=== PATIENT | female | born 1960 | race Caucasian/White ===

== ENCOUNTER → 2017-09-15 10:21 | Outpatient (CLI) | payer BC, SELFPAY ==
[2017-09-15 11:25] LABS: HCT 36.7 % (36.0-46.0); HGB 11.4 g/dL (12.0-15.5); Mean Corp. HGB Concentration 31.1 g/dL (32.0-36.0); Mean Corpuscular Hemoglobin 27.4 pg (27.0-33.0); Mean Corpuscular Volume 88.2 fL (80-95); Mean Platelet Volume 10.3 fL (8.0-11.0); Platelet Count 282 x1000/uL (130-400); RBC 4.16 m/cumm (4.00-5.20); RBC Distribution Width 14.4 % (11.7-14.6)
[2017-09-15 11:48] LABS: ALT 55 U/L (12-78); AST 38 U/L (15-37); Albumin 3.7 g/dL (3.4-5.0); Alkaline Phosphatase 91 U/L (46-116); Anion Gap 9.6 mmol/L (3-11); BUN 14 mg/dL (7-18); Bilirubin, Total 0.2 mg/dL (0.2-1.0); CO2 27.4 mmol/L (21.0-32.0); CREATININE 0.89 mg/dL (0.55-1.02); Calcium 8.9 mg/dL (8.5-10.1); Chloride 104 mmol/L (98-107); Cholesterol 151 mg/dL (50-200); Glucose 92 mg/dL (70-100); HDL Cholesterol 42 mg/dL (40-60); LDL CHOLESTEROL 79 mg/dL (<100); Potassium 4.3 mmol/L (3.5-5.1); Sodium 141 mmol/L (136-145); TSH 1.66 uIU/mL (0.358-3.74); Total Protein 6.9 g/dL (6.4-8.2); Triglyceride 218 mg/dL (30-150)
== END ==
PROVIDERS: PCP Family Medicine; Visit Provider Family Medicine
DX: R53.82 Chronic fatigue, unspecified (principal)
CPT/HCPCS: 36415; 80053; 80061; 83721; 85027; 84443

== ENCOUNTER 2019-01-18 01:36 | Outpatient (CLI) | payer BC, SELFPAY ==
[2019-01-18 10:22] LABS: Hemoglobin A1C 8.3 % (4.5-6.2)
--- NOTE | 2019-01-18 10:30 | DI.MAMMO_ITS ---
EXAM: MG MAMMO SCREENING CLINICAL HISTORY: screening Z12.39 TECHNIQUE: Mammograms were interpreted according to the usual protocol including computer analysis w [employer] CAD system, tomosynthesis and C-view imaging. COMPARISON: [id number] FINDINGS: The breasts are composed of scattered areas of fibroglandular density, breast density category B. Th ere are no suspicious masses or suspicious microcalcifications. There has been no significant change when compared with prior images. IMPRESSION: Category 1, negative mammogram. Yearly screening mammography is recommended. BI-RADS Cat 1 - Negative Breast Density - Category B - Scattered areas of fibroglandular density
[2019-01-18 10:59] LABS: Anion Gap 11.4 mmol/L (3-11); BUN 13 mg/dL (7-18); CO2 26.6 mmol/L (21.0-32.0); CREATININE 0.81 mg/dL (0.55-1.02); Calcium 9.3 mg/dL (8.5-10.1); Calculated LDL 58 mg/dL; Chloride 104 mmol/L (98-107); Cholesterol 150 mg/dL (<200); Glucose 83 mg/dL (74-106); HDL Cholesterol 37 mg/dL (40-60); Potassium 4.3 mmol/L (3.5-5.1); Sodium 142 mmol/L (136-145); Triglyceride 275 mg/dL (<150)
== END 2019-01-18 01:56 ==
PROVIDERS: PCP Family Medicine; Visit Provider Family Medicine
DX: Z12.31 Encounter for screening mammogram for malignant neoplasm of breast (principal); I10 Essential (primary) hypertension; E11.9 Type 2 diabetes mellitus without complications
CPT/HCPCS: 36415; 77063; 77067; 80048; 80061; 83036

== ENCOUNTER 2020-01-18 08:48 | Outpatient (CLI) | payer OTHER, SELFPAY ==
[2020-01-18 12:22] LABS: HCT 37.6 % (36.0-46.0); HGB 11.5 g/dL (11.2-15.7); MCHC 30.6 % (32.0-36.0); MCV 88.3 fL (80-95); MPV 10.3 fL (8.0-11.0); Platelet Count 295 10^3/uL (130-400); RBC 4.26 10^6/uL (3.93-5.22); RDW 13.4 % (11.7-14.6); RDW-SD 43.3 fL; WBC 9.89 10^3/uL (4.4-10.8)
[2020-01-18 12:49] LABS: Anion Gap 7.6 mmol/L (3-11); BUN 15 mg/dL (7-18); CO2 26.4 mmol/L (21.0-32.0); Calcium 9.1 mg/dL (8.5-10.1); Chloride 102 mmol/L (98-107); Glucose 127 mg/dL (74-106); Potassium 4.1 mmol/L (3.5-5.1); Sodium 136 mmol/L (136-145)
[2020-01-18 12:58] LABS: Calculated LDL 72 mg/dL (<100); Cholesterol 160 mg/dL (<200); HDL Cholesterol 39 mg/dL (40-60); Triglyceride 245 mg/dL (<150)
== END 2020-01-18 09:08 ==
PROVIDERS: Family Medicine; PCP Nurse Practitioner; Referring Provider Nurse Practitioner; Visit Provider Nurse Practitioner
DX: E78.5 Hyperlipidemia, unspecified (principal); I10 Essential (primary) hypertension
CPT/HCPCS: 36415; 80048; 80061; 85027

== ENCOUNTER 2020-02-14 01:01 | Outpatient (CLI) | payer OTHER, SELFPAY ==
--- NOTE | 2020-02-14 15:48 | DI.MAMMO_ITS ---
EXAM: MG MAMMO SCREENING CLINICAL HISTORY: screening,Z12.39. TECHNIQUE: Bilateral full field digital CC and MLO mammographic images were obtained with 3D tomosyn thesis and utilizing computer aided detection (CAD). COMPARISON: Prior mammograms dating back to 2010, the most recent being January 2019.. FINDINGS: There are no spiculated masses nor malignant appearing microcalcification groups. There is no signif icant architectural distortion nor skin thickening-retraction. IMPRESSION: No radiographic evidence of malignancy. BI-RADS Category 1 - Negative Breast Density - Category B - Scattered areas of fibroglandular density Breast density Category C or D implies that the patient has dense breast tissue. Dense breast tissue can make it harder to find cancer on a mammogram. Dense breast tissue is also associated with an incr eased risk of breast cancer. This information about the result of the mammogram report was provided to the patient to raise their awareness. Use this report when you speak with the patient about their risks for breast cancer, which includes their family history. At that time, you may recommend additional screening tests (Ultrasoun d or MRI) as these tests may add significant information. A negative radiographic report should not delay biopsy if a dominant or clinically suspicious mass is present. Up to ten percent of cancers are not identified on mammography. A negative report may reinforce clinical impression. Adenosis and dense breasts may obscure an underlying neoplasm. False positive reports average 6 to 10%. Patient will receive a letter notifying them of these results.
== END 2020-02-14 01:21 ==
PROVIDERS: PCP Nurse Practitioner; Visit Provider Nurse Practitioner
DX: Z12.31 Encounter for screening mammogram for malignant neoplasm of breast (principal)
CPT/HCPCS: 77063; 77067

== ENCOUNTER 2020-12-08 10:54 | Outpatient (REF) | payer OTHER, SELFPAY ==
[2020-12-10 14:31] LABS: COVID-19 RT-PCR UVMMC Result Negative (Negative)
== END 2020-12-08 10:55 | disposition home or self-care (01) ==
LOC: LBN 10:54
PROVIDERS: PCP Nurse Practitioner; Visit Provider Family Medicine
DX: Z20.822 Contact with and (suspected) exposure to COVID-19 (principal)
CPT/HCPCS: U0003

== ENCOUNTER 2021-02-16 00:35 | Outpatient (CLI) | payer OTHER, SELFPAY ==
--- NOTE | 2021-02-16 07:30 | DI.MAMMO_ITS ---
Exam(s) MAMMO SCREENING EXAM: MAMMO SCREENING CLINICAL HISTORY: screening,z12.39 TECHNIQUE: Mammograms were interpreted according to the usual protocol including computer analysis w [employer] CAD system, tomosynthesis and C-view imaging. COMPARISON: 2012 through 2019 FINDINGS: The breasts are composed of scattered fibroglandular densities, Breast Density category B. No suspicious masses or suspicious microcalcifications are seen. No skin thickening or abnormal axillary lymph nodes are seen. There has been no significant change from prior exams. IMPRESSION: BI-RADS Category 1, Negative mammogram Yearly screening mammography is recommended. Breast Density - Category B, scattered fibroglandular densities. A negative radiographic report should not delay biopsy if a dominant or clinically suspicious mass is present. Up to ten percent of cancers are not identified on mammography. A negative report may reinforce clinical impression. Adenosis and dense breasts may obscure an underlying neoplasm. False positive reports average 6 to 10%. Patient will receive a letter notifying them of these results.
== END 2021-02-16 00:55 ==
PROVIDERS: PCP Nurse Practitioner; Visit Provider Nurse Practitioner
DX: Z12.31 Encounter for screening mammogram for malignant neoplasm of breast (principal)
CPT/HCPCS: 77063; 77067

== ENCOUNTER 2021-02-16 02:48 | Outpatient (CLI) | payer OTHER, SELFPAY ==
[2021-02-16 12:17] LABS: HCT 36.1 % (36.0-46.0); HGB 11.1 g/dL (11.2-15.7); MCH 27.1 pg (27.0-33.0); MCHC 30.7 % (32.0-36.0); MPV 8.9 fL (8.0-11.0); Platelet Count 252 10^3/uL (130-400); RDW 14.2 % (11.7-14.6); RDW-SD 45.5 fL; WBC 11.44 10^3/uL (4.4-10.8)
[2021-02-16 12:35] LABS: Hemoglobin A1C 7.4 % (<5.7)
[2021-02-16 13:01] LABS: CREATININE 0.8 mg/dL (0.55-1.02); Calculated LDL 126 mg/dL (<100); Cholesterol 226 mg/dL (<200); HDL Cholesterol 43 mg/dL (40-60); Potassium 4.1 mmol/L (3.5-5.1); Triglyceride 288 mg/dL (<150)
== END 2021-02-16 02:49 | disposition home or self-care (01) ==
PROVIDERS: PCP Nurse Practitioner; Visit Provider Nurse Practitioner
DX: I10 Essential (primary) hypertension (principal); E78.5 Hyperlipidemia, unspecified; E11.9 Type 2 diabetes mellitus without complications; D50.8 Other iron deficiency anemias
CPT/HCPCS: 36415; 80061; 85027; 82565; 83036; 84132

== ENCOUNTER 2022-02-12 00:13 | Outpatient (CLI) | payer OTHER, SELFPAY ==
--- NOTE | 2022-02-12 07:45 | DI.MAMMO_ITS ---
Exam(s) US CHEST MG MAMMO DIAGNOSTIC BI EXAM: MG MAMMO DIAGNOSTIC BI CLINICAL HISTORY: lump on breast,LT,N63.25,N63.0. COMPARISON: MG SCREENING JAYLENE MAMMO W/CAD DIGI from 11/30/2012 MG Screening Bilat Mammo from 12/23/2014 MG Screening Bilat Mammo from 01/19/2017 MG MG MAMMO SCREENING from 01/18/2019 MG MG MAMMO SCREENING from 02/14/2020 MG MG MAMMO SCREENING from 02/16/2021 US US CHEST from 02/12/2022 TECHNIQUE: Craniocaudal and mediolateral oblique Full Field Digital Mammography views of the both br easts with Computer Aided Diagnosis followed by Tomosynthesis and left chest wall ultrasound. FINDINGS: Mammography/Tomosynthesis: Masses/Architectural Distortion: None seen. Microcalcifications: No suspicious pleomorphic-type are seen. Skin Thickening/Nipple Retraction: None. Left chest wall US: The palpable abnormality was scanned in the superior chest above the level of the breast tissue. The breast tissue was not scanned. Echotexture: Normal appearance of the glandular tissue. Shadowing: No suspicious foci. Cyst: None. Solid lesions: A homogeneous fatty echogenicity lesion is noted corresponding to the palpable abnorma lity which measures 1.6 x 0.6 x 1.5 cm. This is consistent with a lipoma. There is no internal vasc ularity. Ductal dilation: None. IMPRESSION: 1. No evidence of malignancy is noted. The palpable abnormality is consistent with a lipoma in the le ft upper chest. 2. Unless there is more urgent need, follow-up screening mammography is recommended, as per [place] guidelines. 3. Findings were discussed with the patient following the exam. BI-RADS Category 2 - Benign Findings Breast Density - Category B - Scattered areas of fibroglandular density A negative radiographic report should not delay biopsy if a dominant or clinically suspicious mass is present. Up to ten percent of cancers are not identified on mammography. A negative report may reinforce clinical impression. Adenosis and dense breasts may obscure an underlying neoplasm. False positive reports average 6 to 10%. Patient will receive a letter notifying them of these results.
== END 2022-02-12 00:33 ==
LOC: DI 00:16
PROVIDERS: PCP Nurse Practitioner Family; Visit Provider Nurse Practitioner Family
DX: N63.25 Unspecified lump in the left breast, overlapping quadrants (principal); D17.1 Benign lipomatous neoplasm of skin and subcutaneous tissue of trunk; N64.59 Other signs and symptoms in breast
CPT/HCPCS: 77062; 77066; 76604; G0279

== ENCOUNTER 2022-02-12 02:46 | Outpatient (CLI) | payer OTHER, SELFPAY ==
[2022-02-12 14:23] LABS: Abs Immature Grans 0.04 10^3/uL (0.0-0.06); Absolute Basophil Count 0.07 10^3/uL (0.0-0.2); Absolute Lymphocyte Count 3.99 10^3/uL (1.2-3.4); Absolute Monocyte Count 0.74 10^3/uL (0.1-0.8); Basophils % 0.6; Eosinophils % 5.8; HCT 34.9 % (36.0-46.0); HGB 10.9 g/dL (11.2-15.7); Immature Grans % 0.3; Lymphocytes % 33.3; MCH 26.9 pg (27.0-33.0); MCHC 31.2 % (32.0-36.0); MCV 86 fL (80-95); MPV 9.2 fL (8.0-11.0); Monocytes % 6.2; Neutrophils % 53.8; Platelet Count 295 10^3/uL (130-400); RBC 4.05 10^6/uL (3.93-5.22); RDW 14.1 % (11.7-14.6); RDW-SD 44.3 fL; WBC 11.97 10^3/uL (4.4-10.8)
[2022-02-12 14:24] LABS: Absolute Eosinophil Count 0.69 10^3/uL (0.0-0.7); Absolute Neutrophil Count 6.44 10^3/uL (1.2-6.7)
[2022-02-12 15:37] LABS: BUN 12 mg/dL (7-18); CREATININE 0.9 mg/dL (0.55-1.02); Calcium 9.3 mg/dL (8.5-10.1); Calculated LDL 53 mg/dL (<100); Chloride 103 mmol/L (98-107); Cholesterol 153 mg/dL (<200); Estimated GFR 72.28 (mL/min/1.73m2); Glucose 240 mg/dL (74-106); HDL Cholesterol 46 mg/dL (40-60); Potassium 4.1 mmol/L (3.5-5.1); Sodium 138 mmol/L (136-145); Triglyceride 274 mg/dL (<150)
== END 2022-02-12 02:47 | disposition home or self-care (01) ==
LOC: LBO 02:47
PROVIDERS: PCP Nurse Practitioner Family; Visit Provider Nurse Practitioner Family
DX: D50.9 Iron deficiency anemia, unspecified (principal); E11.9 Type 2 diabetes mellitus without complications; I10 Essential (primary) hypertension; E78.5 Hyperlipidemia, unspecified; K21.9 Gastro-esophageal reflux disease without esophagitis; Z00.00 Encounter for general adult medical examination without abnormal findings
CPT/HCPCS: 36415; 80048; 80061; 85025

== ENCOUNTER → 2023-02-15 00:27 | Outpatient (CLI) | payer OTHER, SELFPAY ==
--- NOTE | 2023-02-15 10:26 | DI.MAMMO_ITS ---
Exam(s) MAMMO SCREENING EXAM: MAMMO SCREENING CLINICAL HISTORY: screening,z12.39 TECHNIQUE: Bilateral full field digital CC and MLO mammographic images were obtained with 3D tomosyn thesis and utilizing computer aided detection (CAD). COMPARISON: Available for comparison. FINDINGS: Masses/Architectural Distortion: None seen. Microcalcifications: No suspicious pleomorphic-type are seen. Skin Thickening/Nipple Retraction: None. IMPRESSION: 1. No significant interval change with no specific features of malignancy noted. 2. Unless there is more urgent need, screening mammography is recommended, as per [place] [employer] guidelines. BI-RADS Category 1 - Negative Breast Density - Category B - Scattered areas of fibroglandular density Breast density category C or D implies that the patient has dense breast tissue. Dense breast tissue is very common and is not abnormal but dense breast tissue can make it harder to find cancer on a ma mmogram. Also, dense breast tissue may increase their breast cancer risk. This information about the result of the mammogram report was provided to the patient to raise their awareness. Use this report when you speak with the patient about their risks for breast cancer, which includes their family hist ory. At that time, you may recommend for more screening tests (Ultrasound or MRI) as they might be us eful based on their risk. A negative radiographic report should not delay biopsy if a dominant or clinically suspicious mass is present. Up to ten percent of cancers are not identified on mammography. A negative report may reinforce clinical impression. Adenosis and dense breasts may obscure an underlying neoplasm. False positive reports average 6 to 10%. Patient will receive a letter notifying them of these results.
== END ==
PROVIDERS: PCP Nurse Practitioner Family; Visit Provider Nurse Practitioner Family
DX: Z12.31 Encounter for screening mammogram for malignant neoplasm of breast (principal)
CPT/HCPCS: 77063; 77067

== ENCOUNTER 2023-02-25 04:16 | Outpatient (CLI) | payer OTHER, SELFPAY ==
[2023-02-25 12:50] LABS: HCT 36.1 % (36.0-46.0); HGB 11.4 g/dL (11.2-15.7); MCH 28.2 pg (27.0-33.0); MCHC 31.6 % (32.0-36.0); MCV 89 fL (80-95); MPV 10.2 fL (8.0-11.0); Platelet Count 322 10^3/uL (130-400); RBC 4.04 10^6/uL (3.93-5.22); RDW-SD 45.6 fL; WBC 9.23 10^3/uL (4.4-10.8)
[2023-02-25 13:11] LABS: ALT 32 U/L (14-59); AST 21 U/L (15-37); Albumin 3.7 g/dL (3.4-5.0); Alkaline Phosphatase 91 U/L (46-116); Anion Gap 9.9 mmol/L (3-11); BUN 16 mg/dL (7-18); Bilirubin, Total 0.4 mg/dL (0.2-1.0); CO2 25.1 mmol/L (21.0-32.0); CREATININE 0.9 mg/dL (0.55-1.02); Calcium 9.4 mg/dL (8.5-10.1); Calculated LDL 91 mg/dL (<100); Chloride 103 mmol/L (98-107); Cholesterol 173 mg/dL (<200); Estimated GFR 71.83 (mL/min/1.73m2); Glucose 127 mg/dL (74-106); HDL Cholesterol 45 mg/dL (40-60); Potassium 4.1 mmol/L (3.5-5.1); Sodium 138 mmol/L (136-145); Total Protein 7.5 g/dL (6.4-8.2); Triglyceride 186 mg/dL (<150)
== END 2023-02-25 04:17 | disposition home or self-care (01) ==
LOC: LOS 04:16
PROVIDERS: PCP Nurse Practitioner Family; Visit Provider Nurse Practitioner Family
DX: E11.9 Type 2 diabetes mellitus without complications; E78.5 Hyperlipidemia, unspecified; I10 Essential (primary) hypertension; K21.9 Gastro-esophageal reflux disease without esophagitis; Z00.00 Encounter for general adult medical examination without abnormal findings
CPT/HCPCS: 36415; 80053; 80061; 85027

== ENCOUNTER 2023-04-01 11:45 | Emergency (ER) | payer OTHER, SELFPAY ==
[2023-04-01 11:54] VITALS: BP 150/74; PULSE 75; RESP 16; TEMP 36.6; O2SAT 96
--- NOTE | 2023-04-01 12:15 | DI.RAD_ITS ---
Exam(s) XR SHOULDER RT COMPLETE 2+V EXAM: XR SHOULDER RT COMPLETE 2+V CLINICAL HISTORY: right shoulder injury. TECHNIQUE: 2D digital imaging was performed. Five views. COMPARISON: No exams were available for comparison FINDINGS: BONES: No acute fracture is identified. No bony destructive lesion is seen. JOINTS: The humeral head is dislocated anteriorly and medially with respect to the glenoid. SOFT TISSUE: Normal. IMPRESSION: anterior shoulder dislocation. No fracture is visible. DATA REPOSITORY: RADIATION DOSE DELIVERED:
[2023-04-01] MEDS: traMADol 50 MG TAB PO (12:30)
[2023-04-01] MEDS: Acetaminophen 500 MG TAB 1000 MG PO (12:31)
[2023-04-01] MEDS: Prochlorperazine 5 MG TAB PO (13:19)
[2023-04-01] MEDS: HYDROmorphone 2 MG/ML SYR 1 MG IM ×2 (13:19→13:51)
--- NOTE | 2023-04-01 13:35 | ED.GENADUL_ITS ---
HPI <AGUSTINA Meza - Last Filed: 04/05/23 09:38> General Date/Time Provider Initiated Documentation: 04/01/23 12:17 . HPI Narrative: This 62-year-old female presents with right shoulder pain after landing on her right shoulder denies any additional injuries, specifically denies head injury or history of anticoagulation. She is been able to move her shoulder since that time. She denies any numbness or tingling to her hand. She denies any abdominal pain, chest pain, shortness of breath. She states she slipped on ice. Related Data Home Medications Medication Instructions Recorded Confirmed glucosamine sulfate 1,000 mg 1,500 mg PO DAILY 11/20/18 04/04/23 capsule magnesium oxide 500 mg capsule 500 mg PO DAILY 11/20/18 04/04/23 omega-3 fatty acids 1,000 mg 1,000 mg PO DAILY 11/20/18 04/04/23 capsule fluticasone propionate 110 2 puff inhalation BID #3 ea 01/16/19 04/04/23 mcg/actuation HFA aerosol inhaler (Flovent HFA) triamcinolone acetonide 0.1 % 1 applic topical BID #30 grams 01/16/19 04/04/23 topical cream gkvbsfzz-njmogpmaa-jdyrcrnln 3.5 4 drp otic (ear) Q8H #10 mL 12/08/20 04/04/23 mg-10,000 unit/mL-1 % ear drops,susp fluticasone propionate 50 2 spray NS BID #3 grams 07/21/21 04/04/23 mcg/actuation nasal spray,suspension betamethasone valerate 0.1 % lotion 1 applic topical PRN #60 mL 01/26/22 04/04/23 glipizide 5 mg tablet 5 mg PO BID #180 tab-caps 01/26/22 04/04/23 blood sugar diagnostic #100 strips 06/14/22 04/04/23 ketorolac 0.5 % eye drops 1 drp ophthalmic (eye) QID 90 days 07/13/22 04/04/23 #10 mL ibuprofen 800 mg tablet 800 mg PO TID #270 tab-caps 07/26/22 04/04/23 metformin 1,000 mg tablet 1,000 mg PO DAILY diabetes #90 08/04/22 04/04/23 tab-caps lisinopril 10 mg tablet 10 mg PO DAILY #90 tab-caps 09/21/22 04/04/23 omeprazole 40 mg capsule,delayed 40 mg PO DAILY #90 tab-caps 09/21/22 04/04/23 release cyclobenzaprine 10 mg tablet 10 mg PO BID PRN muscle spasm #60 01/25/23 04/04/23 tabs dulaglutide 4.5 mg/0.5 mL 4.5 mg (0.5 mL) subcut QWEEK #2 mL 02/08/23 04/04/23 subcutaneous pen injector benzonatate 100 mg capsule 100 mg PO TID PRN cough #30 caps 02/10/23 04/04/23 lancets 33 gauge #100 ea 02/10/23 04/04/23 albuterol sulfate 90 mcg/actuation 2 puff inhalation Q6H PRN #3 ea 02/17/23 04/04/23 aerosol inhaler (Proventil HFA) atorvastatin 40 mg tablet 40 mg PO QPM #90 tabs 02/17/23 04/04/23 zolpidem 10 mg tablet (Ambien) 10 mg PO HS PRN sleep #30 tab-caps 02/17/23 04/04/23 citalopram 20 mg tablet 20 mg PO DAILY #90 tabs 03/07/23 04/04/23 Previous Rx's Medication Instructions Recorded fluticasone propionate 110 2 puff inhalation BID #3 ea 01/16/19 mcg/actuation HFA aerosol inhaler (Flovent HFA) triamcinolone acetonide 0.1 % 1 applic topical BID #30 grams 01/16/19 topical cream [id number]-ssidlcvlt-rbtdppqln 3.5 4 drp otic (ear) Q8H #10 mL 12/08/20 mg-10,000 unit/mL-1 % ear drops,susp fluticasone propionate 50 2 spray NS BID #3 grams 07/21/21 mcg/actuation nasal spray,suspension betamethasone valerate 0.1 % lotion 1 applic topical PRN #60 mL 01/26/22 glipizide 5 mg tablet 5 mg PO BID #180 tab-caps 01/26/22 blood sugar diagnostic #100 strips 06/14/22 ketorolac 0.5 % eye drops 1 drp ophthalmic (eye) QID 90 days 07/13/22 #10 mL ibuprofen 800 mg tablet 800 mg PO TID #270 tab-caps 07/26/22 metformin 1,000 mg tablet 1,000 mg PO DAILY diabetes #90 08/04/22 tab-caps lisinopril 10 mg tablet 10 mg PO DAILY #90 tab-caps 09/21/22 omeprazole 40 mg capsule,delayed 40 mg PO DAILY #90 tab-caps 09/21/22 release cyclobenzaprine 10 mg tablet 10 mg PO BID PRN muscle spasm #60 01/25/23 tabs dulaglutide 4.5 mg/0.5 mL 4.5 mg (0.5 mL) subcut QWEEK #2 mL 02/08/23 subcutaneous pen injector benzonatate 100 mg capsule 100 mg PO TID PRN cough #30 caps 02/10/23 lancets 33 gauge #100 ea 02/10/23 albuterol sulfate 90 mcg/actuation 2 puff inhalation Q6H PRN #3 ea 02/17/23 aerosol inhaler (Proventil HFA) atorvastatin 40 mg tablet 40 mg PO QPM #90 tabs 02/17/23 zolpidem 10 mg tablet (Ambien) 10 mg PO HS PRN sleep #30 tab-caps 02/17/23 citalopram 20 mg tablet 20 mg PO DAILY #90 tabs 03/07/23 Allergies Allergy/AdvReac Type Severity Reaction Status Date / Time erythromycin base Allergy Unknown Verified 02/10/23 13:16 Iodinated Contrast Media Allergy Unknown Verified 02/10/23 13:16 [Iodinated Contrast- Oral and IV Dye] nitrofurantoin Allergy Unknown Verified 02/10/23 13:16 oxycodone Allergy Unknown ITCHING Verified 02/10/23 13:16 Tetracyclines AdvReac Unknown N/V/D Verified 02/10/23 13:16 methylprednisolone AdvReac Verified 02/10/23 13:16 General Stated Complaint: Orthopedic DEBORAH: 3 Course <AGUSTINA Meza - Last Filed: 04/05/23 09:38> Vital Signs Vital signs: Vital Signs Temperature 36.6 C 04/01/23 11:54 Pulse 75 04/01/23 11:54 Respiratory Rate 16 04/01/23 11:54 Blood Pressure 150/74 H 04/01/23 11:54 Pulse Oximetry 96 04/01/23 11:54 Temperature 36.6 C 04/01/23 11:54 Temperature Source Skin 04/01/23 11:54 Pulse 75 04/01/23 11:54 Respiratory Rate 16 04/01/23 11:54 Respiratory Effort Normal, Non-Labored 04/01/23 11:57 Blood Pressure 150/74 H 04/01/23 11:54 Pulse Oximetry 96 04/01/23 11:54 Pain Level 9 04/01/23 12:31 Medical Decision Making <AGUSTINA Meza - Last Filed: 04/05/23 09:38> this 62 yo female presents with report of injury to right shoulder Denies any additional injuries, GCS 15, no cervical spine tenderness or visible signs of head trauma, no significant deformity noted however patient is unable to range shoulder Neurovascularly intact X-ray was ordered which shows anterior shoulder dislocation 10 cc of lidocaine without epinephrine was injected into the shoulder joint just inferior to the acromioclavicular joint Good effect achieved, 2 mg of IM Dilaudid I attempted Fares and Willard technique without reduction, remains neurovascularly intact Repeat x-ray was performed, anterior dislocation remains, at this time orthopedics has been consulted and will attempt a nerve block with anesthesia, care will be transitioned pending reduction Quality:[facility] Health Related Social Needs: No Data to Display <Maria Elena Lopez NP - Last Filed: 04/01/23 19:38> Medical Records Medical records reviewed: Yes I reviewed the patient's medical records. Medical records narrative: 1612: Assumed care of patient, Dr. Michael and Anesthesia here at for consent for Nerve block and repeat attempt of Shoulder reduction. Patient moved to [facility] room. 1645: Dr. Michael done with procedure, post reduction xrays ordered, placed in Sling By Dr. Michael. 1725: Home care instructions given by Dr. Michael will discharge patient to home in the care of her family. PFSH <AGUSTINA Meza - Last Filed: 04/05/23 09:38> All Active Problems (Updated 04/04/23 @ 06:21 by Celso Michael MD) Fracture dislocation of right shoulder joint (Acute 04/04/23) Anterior shoulder dislocation (Acute) Closed dislocation of right shoulder (Acute) Closed dislocation of right glenohumeral joint (Acute 04/01/23) Anxiety and depression (Chronic) Chronic pain of right knee (Acute) 10/2020- s/p replacement x 2- flexeril daily tramadol only as needed Iron deficiency anemia (Acute) Dyshidrotic eczema (Chronic) Primary fibromyalgia syndrome (Acute 11/16/12) Other seasonal allergic rhinitis (Acute 12/06/14) Osteoarthritis of thumb (Acute 11/22/13) Obesity (Acute) Hyperlipidemia (Acute) Gastroesophageal reflux disease (Acute) Essential hypertension (Acute 01/04/17) Diabetes mellitus (Acute) Medical History Smoker quit 2006 >30 year Pack years Surgical History (Updated 01/18/20 @ 08:09 by Annie Perry NP) History of arthroscopy of knee History of unilateral oophorectomy Status post cholecystectomy Status post total knee replacement Replacement of total knee joint (~1994) 1994 RIGHT; 2004 RIGHT Oophrectomy, Right Oophrectomy, Left Abdominal hysterectomy (~1988) Cholecystectomy Arthroplasty of knee (~2003) Family History (Updated 01/17/19 @ 10:09 by Brant Person) Mother Diabetes Heart disease Hyperlipidemia Neoplasm SKIN Skin cancer Father Diabetes Heart disease Hyperlipidemia Prostate cancer Maternal Grandmother Diabetes Brother Hyperlipidemia Brother Fibromyalgia Hyperlipidemia Brother Fibromyalgia Hyperlipidemia Brother Fibromyalgia Hyperlipidemia Son No problems noted. Social History (Updated 02/12/23 @ 11:50 by Silvia James) Smoking/Tobacco Use Status: Former Tobacco Use tobacco type: cigarettes Quit Date: 02/14/06 Tobacco: How many years used: 12 Second Hand Exposure: Yes Smoking risk assessment performed?: Yes Alcohol Intake: current Alcohol Intake frequency: holidays/special occasions only Alcohol type: wine Drug use: Never Substance use type: does not use Caregiver/Support person: No Household members: spouse Housing: house Do you need help understanding health information?: Never current occupation: [employer] INTER[employer] Pets and animals: Yes Pets and animals: cat(s) Sexually active: Yes Do you think of yourself as: straight/heterosexual Current gender identity: female What is your relationship status?: How often do you talk on the phone with friends or family?: three or more times per week How often do you get together with friends or relatives?: twice per week How often do you attend scientology or evangelical services?: decline to answer Do you belong to any clubs or organized social groups?: decline to answer Panel score (0-1 are the most socially isolated patients): 2 What type of physical activity do you participate in: walking Duration: 15-30 minutes/day Frequency: daily No/Yazdanism: Worship Special no needs: No Seatbelt use: always Helmet use: Yes Helmet use: always Drive intox or ride w/intox electric mule driver: No Do you feel safe at home: Yes Do you feel safe in your relationship?: Yes Victim of physical abuse: No Victim of emotional abuse: No Victim of sexual abuse: No Would you like helpful sources: No Sign Out <AGUSTINA Meza - Last Filed: 04/05/23 09:38> Sign Out Data: Sign Out Comment: pending shoulder reduction Last updated by Stephanie Ahumada PA at 04/01/23 16:04 Discharge Plan Disposition Patient Disposition: Home Condition: Stable Discharge Details Clinical Impression: Closed dislocation of right shoulder Primary Care Provider: Isidra Escalante ED Provider: Maria Elena Lopez Meds and New Rx's Prescriptions: Continued triamcinolone acetonide 0.1 % cream 1 applic Topical BID Qty: 30 2RF Rx Instructions: Apply to feet fluticasone propionate [Flovent HFA] 110 mcg/actuation HFA aerosol inhaler 2 puff Inhalation BID Qty: 3 4RF Rx Instructions: 110MCG fluticasone propionate 50 mcg/actuation spray,suspension 2 spray NS BID Qty: 3 4RF (DME) lancets 33 gauge misc 1 ea Intradermal BID Qty: 100 5RF Rx Instructions: DX:[id number] benzonatate 100 mg capsule 100 mg PO TID PRN (Reason: cough) Qty: 30 1RF Rx Instructions: Take 1-2 capsules by mouth three times a day as needed for cough omega-3 fatty acids 1,000 mg capsule 1,000 mg PO DAILY magnesium oxide 500 mg capsule 500 mg PO DAILY glucosamine sulfate 1,000 mg capsule 1,500 mg PO DAILY nfxsvaob-acsfqixlt-AZ 3.5-10,000-1 mg/mL-unit/mL-% drops,suspension 4 drp otic (ear) Q8H Qty: 10 0RF betamethasone valerate 0.1 % lotion 1 applic Topical PRN Qty: 60 3RF Rx Instructions: Massage 2 ml into scalp HS glipizide 5 mg tablet 5 mg PO BID Qty: 180 4RF Hold Instructions: Changed by Provider ([place]) blood sugar diagnostic Strip 1 strip Miscellaneous BID Qty: 100 4RF Rx Instructions: one daily ketorolac 0.5 % drops 1 drp Ophthalmic QID 90 Days Qty: 10 3RF ibuprofen 800 mg tablet 800 mg PO TID Qty: 270 4RF metformin 1,000 mg tablet 1,000 mg PO DAILY Qty: 90 3RF Hold Instructions: Changed by Provider omeprazole 40 mg capsule,delayed release(DR/EC) 40 mg PO DAILY Qty: 90 4RF lisinopril 10 mg tablet 10 mg PO DAILY Qty: 90 3RF cyclobenzaprine 10 mg tablet 10 mg PO BID PRN (Reason: muscle spasm) Qty: 60 2RF dulaglutide 4.5 mg/0.5 mL pen injector 4.5 mg subcut QWEEK Qty: 2 3RF albuterol sulfate [Proventil HFA] 90 mcg/actuation HFA aerosol inhaler 2 puff Inhalation Q6H PRN Qty: 3 4RF atorvastatin 40 mg tablet 40 mg PO QPM Qty: 90 3RF zolpidem [Ambien] 10 mg tablet 10 mg PO HS PRN (Reason: sleep) Qty: 30 0RF citalopram 20 mg tablet 20 mg PO DAILY Qty: 90 1RF Discharge Instructions Instructions: Shoulder Dislocation (ED) Additional Instructions: Please wear the sling while awake as directed by Dr. Michael. Ice to reduce swelling and pain. do not do any heavy lifting or bringing your arm above 90 degrees. Please take Tylenol or Ibuprofen with food every 4-6 hours as needed for pain and swelling. Follow up with orthopedics if needed, primary care provider in 3-5 days. Return to ED sooner if any worsening or concerns. Referrals: Celso Michael MD [ [facility] STAFF PHYSICIAN] - Isidra Escalante NP [Primary Care Provider] - Discharge Data Discharge Date/Time-TO BE ENTERED AT DEPARTURE: 04/01/23 18:03
--- NOTE | 2023-04-01 14:42 | DI.RAD_ITS ---
Exam(s) XR SHOULDER RT COMP POST REDUC EXAM: XR SHOULDER RT COMP POST REDUC CLINICAL HISTORY: post reduction. TECHNIQUE: 2D digital imaging was performed of the right shoulder. Two images were obtained. AP, G rashey, Y-view and axillary views were obtained. COMPARISON: CR XR SHOULDER RT COMPLETE 2+V from 04/01/2023 FINDINGS: BONES: No acute fracture is present. No bony destructive lesion is seen. JOINTS: There is a persistent anterior dislocation of the shoulder. There are degenerative changes at the acromioclavicular joint. SOFT TISSUE: The visualized lungs are clear. IMPRESSION: Persistent anterior dislocation of the right shoulder. DATA REPOSITORY: RADIATION DOSE DELIVERED:
--- NOTE | 2023-04-01 15:11 | DI.RAD_ITS ---
Exam(s) XR SHOULDER RT COMP POST REDUC EXAM: XR SHOULDER RT COMP POST REDUC CLINICAL HISTORY: reduction x2. TECHNIQUE: 2D digital imaging was performed of the right shoulder. Two images were obtained. AP an d Y views were obtained. COMPARISON: CR XR SHOULDER RT COMPLETE 2+V from 04/01/2023 CR XR SHOULDER RT COMP POST REDUC from 04/01/2023 FINDINGS: BONES: There is now a round density seen at the posterior aspect of the glenoid on the AP view. This may represent a small fracture fragment. No bony destructive lesion is seen. JOINTS: There is a persistent right anterior shoulder dislocation. SOFT TISSUE: The visualized lungs are clear. IMPRESSION: Persistent right anterior shoulder dislocation. DATA REPOSITORY: RADIATION DOSE DELIVERED:
[2023-04-01 16:12] VITALS: PULSE 74; RESP 20
[2023-04-01 16:16] VITALS: BP 158/71; PULSE 74
[2023-04-01 16:20] VITALS: PULSE 75; RESP 7
--- NOTE | 2023-04-01 16:35 | W.ANESNERVE ---
Nerve Block Single Injection Procedure Date and Time Date Performed: 04/01/23 Procedure Start: 16:25 Location Where Procedure Performed Procedure Location: Emergency Department Reason Performed: Acute Pain Management Pain Diagnosis: Shoulder Pain Requesting Provider: Celso Michael Timeout Performed Timeout Performed: Yes Monitoring Used ECG, Blood Pressure and SpO2 Sterility Sterility: Hand Hygiene, Surgical Cap, Surgical Mask, Sterile Gloves and Chlorhexidine Sedation Given During Procedure Sedation Given (Indicate Dose Given): No Sedation given Patient Mental Status Patient Mental Status: Awake Nerve Block 1st Nerve Block: Laterality: Right Block Type: Interscalene Ultrasound Image Saved?: Yes Needle / Catheter Used: 100mm SonoPlex II Local Anesthetic Bolus (Indicate Dose Given): Lidocaine used for local infiltration of skin, Injected in 3-5ml increments after negative blood aspiration and Chloroprocaine 3% Dose:: 20mL Additives (Indicate Dose Given): None Ultrasound: Sterile probe cover and gel used Nerve Stimulator: Supplement to Ultrasound use Paresthesia: None Procedure Tolerated: No Complications and Patient tolerated well Procedure Outcome: Successful Performed By: Ambrose Roman
--- NOTE | 2023-04-01 16:53 | W.ORTHOCONSU ---
Date of service: 04/01/23 Time of Service: 16:54 Assessment and Plan Assessment and plan (1) Closed dislocation of right glenohumeral joint: Status: Acute Assessment and plan: 62-year-old female with right shoulder anterior glenohumeral dislocation Patient describes mechanical fall prior to presentation with right shoulder deformity. Denies any numbness or tingling to the time of injury. No pre-existing shoulder problems except for age-related issues. Denies any prior shoulder instability or rotator cuff problems. Medical history includes diabetes, reasonably well-controlled. Hyperlipidemia. Isolated right shoulder injury. Comfortable at rest, discomfort with any attempted shoulder motion. Called to evaluate patient after multiple failed ER reduction attempts. Patient has received short acting regional anesthetic to assist with next reduction attempt. Exam prior to the nerve block showed sensory intact about shoulder and right upper extremity. Denies any paresthesias actually nerve medial radial ulnar. Demonstrates intact motor about the wrist and hand. Obvious anterior chest fullness and positive sulcus at the right shoulder. Right shoulder x-rays reviewed showing persistent anterior glenohumeral dislocation. Possible calcium versus avulsion bone fragment superior glenohumeral joint. Discussed thoroughly with patient and her partner need for emergent reduction. Reduced successfully using Nelida method under regional anesthetic. Shoulder stable until about 75 degrees external rotation and then there is mechanical subluxation. Stable past 90 degrees forward elevation. Post reduction neurovascular exam intact. Sling placed in internal rotated position. Postreduction x-rays confirm reduction, no visible fracture. Patient wishing to travel to [place] in 6 days . I will print out her x-rays for her and arrange follow-up this week with me in my office. Reviewed the usual risks and precautions, recommend protection about 2-3 weeks. Sling use when up and about this weekend. Keep hand in front of body avoid any significant external rotation or combined abduction and external rotation. Light use hand and fingers okay. Discussed with emergency room doctor. [facility] All Active Problems (Updated 04/01/23 @ 16:55 by Celso Michael MD) Closed dislocation of right glenohumeral joint (Acute 04/01/23) Anxiety and depression (Chronic) Chronic pain of right knee (Acute) 10/2020- s/p replacement x 2- flexeril daily tramadol only as needed Iron deficiency anemia (Acute) Dyshidrotic eczema (Chronic) Primary fibromyalgia syndrome (Acute 11/16/12) Other seasonal allergic rhinitis (Acute 12/06/14) Osteoarthritis of thumb (Acute 11/22/13) Obesity (Acute) Hyperlipidemia (Acute) Gastroesophageal reflux disease (Acute) Essential hypertension (Acute 01/04/17) Diabetes mellitus (Acute) Medical History Smoker quit 2006 >30 year Pack years Surgical History (Updated 01/18/20 @ 08:09 by Annie Perry NP) History of arthroscopy of knee History of unilateral oophorectomy Status post cholecystectomy Status post total knee replacement Replacement of total knee joint (~1994) 1994 RIGHT; 2004 RIGHT Oophrectomy, Right Oophrectomy, Left Abdominal hysterectomy (~1988) Cholecystectomy Arthroplasty of knee (~2003) Family History (Updated 01/17/19 @ 10:09 by Brant Person) Mother Diabetes Heart disease Hyperlipidemia Neoplasm SKIN Skin cancer Father Diabetes Heart disease Hyperlipidemia Prostate cancer Maternal Grandmother Diabetes Brother Hyperlipidemia Brother Fibromyalgia Hyperlipidemia Brother Fibromyalgia Hyperlipidemia Brother Fibromyalgia Hyperlipidemia Son No problems noted. Social History (Updated 02/12/23 @ 11:50 by Silvia James) Smoking/Tobacco Use Status: Former Tobacco Use tobacco type: cigarettes Quit Date: 02/14/06 Tobacco: How many years used: 12 Second Hand Exposure: Yes Smoking risk assessment performed?: Yes Alcohol Intake: current Alcohol Intake frequency: holidays/special occasions only Alcohol type: wine Drug use: Never Substance use type: does not use Caregiver/Support person: No Household members: spouse Housing: house Do you need help understanding health information?: Never current occupation: [employer] Pets and animals: Yes Pets and animals: cat(s) Sexually active: Yes Do you think of yourself as: straight/heterosexual Current gender identity: female What is your relationship status?: How often do you talk on the phone with friends or family?: three or more times per week How often do you get together with friends or relatives?: twice per week How often do you attend religion or scientologist services?: decline to answer Do you belong to any clubs or organized social groups?: decline to answer Panel score (0-1 are the most socially isolated patients): 2 What type of physical activity do you participate in: walking Duration: 15-30 minutes/day Frequency: daily No/Episcopal: Taoist Special no needs: No Seatbelt use: always Helmet use: Yes Helmet use: always Drive intox or ride w/intox ambulette driver: No Do you feel safe at home: Yes Do you feel safe in your relationship?: Yes Victim of physical abuse: No Victim of emotional abuse: No Victim of sexual abuse: No Would you like helpful sources: No Results Last Vital Signs Temp 97.9 F 04/01/23 11:54 Pulse 74 04/01/23 16:16 Resp 7 L 04/01/23 16:20 BP 158/71 H 04/01/23 16:16 Pulse Ox 96 04/01/23 11:54 Procedures Orthopedic Joint Reduction Rt shoulder: Time out performed: Yes Side: right Joint reduction location: shoulder Analgesia: nerve block (Regional anesthetic from [employer]) Shoulder technique used (if applicable): other (Nelida) Technique used: direct manipulation Post-reduction neuro exam: intact Post-reduction vascular exam: intact Post-reduction x-ray obtained: Yes Post-reduction x-ray results: reduced Splint applied: Yes Patient tolerated procedure: well Additional comments: CPT #87344
--- NOTE | 2023-04-01 17:15 | DI.RAD_ITS ---
Exam(s) XR SHOULDER RT COMP POST REDUC EXAM: XR SHOULDER RT COMP POST REDUC CLINICAL HISTORY: Post Reduction. TECHNIQUE: 2D digital imaging was performed. Five views. COMPARISON: CR XR SHOULDER RT COMPLETE 2+V from 04/01/2023 CR XR SHOULDER RT COMP POST REDUC from 04/01/2023 CR XR SHOULDER RT COMP POST REDUC from 04/01/2023 FINDINGS: The previously noted anterior shoulder dislocation has been reduced. The previously noted rounded celeste ny density is not visible on the current exam. No definite fracture visible.. IMPRESSION: Satisfactory reduction of shoulder dislocation. DATA REPOSITORY: RADIATION DOSE DELIVERED:
== END 2023-04-01 18:03 | disposition home or self-care (01) ==
PROVIDERS: Emergency Provider Registered Nurse Emergency; PCP Nurse Practitioner Family
DX: S43.084A Other dislocation of right shoulder joint, initial encounter (principal); Z87.891 Personal history of nicotine dependence; W00.0XXA Fall on same level due to ice and snow, initial encounter; Y93.89 Activity, other specified
CPT/HCPCS: 23650; 73030; 96372; 96374; 99284; J1170; J2401

== ENCOUNTER 2023-04-04 00:22 | Emergency (ER) | payer OTHER, SELFPAY ==
[2023-04-04] VITALS (8 sets, daily range): BP systolic 143–177; BP diastolic 69–98; PULSE 71–80; RESP 11–20; TEMP 36.4–37.7; O2SAT 90–96
--- NOTE | 2023-04-04 00:30 | DI.RAD_ITS ---
Exam(s) XR SHOULDER RT COMPLETE 2+V EXAM: XR SHOULDER RT COMPLETE 2+V CLINICAL HISTORY: previously disolcated, felt a 'pop'. TECHNIQUE: 2D digital imaging was performed of the right shoulder. Two images were obtained. AP an d Y views were obtained. COMPARISON: CR XR SHOULDER RT COMP POST REDUC from 04/01/2023 FINDINGS: BONES: No acute fracture is present. No bony destructive lesion is seen. JOINTS: There is an anterior dislocation of the glenohumeral joint. There is a also slight inferior dislocation present. SOFT TISSUE: Normal. IMPRESSION: Anterior inferior dislocation of the glenohumeral joint. DATA REPOSITORY: RADIATION DOSE DELIVERED:
[2023-04-04] MEDS: fentaNYL 100 MCG/2 ML VIAL 50 MCG IM (00:55)
[2023-04-04] MEDS: Ondansetron O.D.T. 4 MG TABEF PO (00:56)
--- NOTE | 2023-04-04 02:01 | ED.GENADUL_ITS ---
HPI General Mode of arrival: ambulatory . Date/Time Provider Initiated Documentation: 04/04/23 00:35 . Limitations to Documentation: no limitations . Information obtained by: patient . HPI Narrative: 62yo F with recent right shoulder dislocation after a fall presenting with right shoulder pain after moving in her sleep and feeling the shoulder pop out of joint. No numbness, tingling, or weakness in her arm. Severe pain, worse with movement at shoulder. No new trauma or falls. Otherwise in her usual state of health. Related Data Home Medications Medication Instructions Recorded Confirmed glucosamine sulfate 1,000 mg 1,500 mg PO DAILY 11/20/18 04/04/23 capsule magnesium oxide 500 mg capsule 500 mg PO DAILY 11/20/18 04/04/23 omega-3 fatty acids 1,000 mg 1,000 mg PO DAILY 11/20/18 04/04/23 capsule fluticasone propionate 110 2 puff inhalation BID #3 ea 01/16/19 04/04/23 mcg/actuation HFA aerosol inhaler (Flovent HFA) triamcinolone acetonide 0.1 % 1 applic topical BID #30 grams 01/16/19 04/04/23 topical cream dzqyqxrm-vlrfegkjk-qcvtvhcoh 3.5 4 drp otic (ear) Q8H #10 mL 12/08/20 04/04/23 mg-10,000 unit/mL-1 % ear drops,susp fluticasone propionate 50 2 spray NS BID #3 grams 07/21/21 04/04/23 mcg/actuation nasal spray,suspension betamethasone valerate 0.1 % lotion 1 applic topical PRN #60 mL 01/26/22 04/04/23 glipizide 5 mg tablet 5 mg PO BID #180 tab-caps 01/26/22 04/04/23 blood sugar diagnostic #100 strips 06/14/22 04/04/23 ketorolac 0.5 % eye drops 1 drp ophthalmic (eye) QID 90 days 07/13/22 04/04/23 #10 mL ibuprofen 800 mg tablet 800 mg PO TID #270 tab-caps 07/26/22 04/04/23 metformin 1,000 mg tablet 1,000 mg PO DAILY diabetes #90 08/04/22 04/04/23 tab-caps lisinopril 10 mg tablet 10 mg PO DAILY #90 tab-caps 09/21/22 04/04/23 omeprazole 40 mg capsule,delayed 40 mg PO DAILY #90 tab-caps 09/21/22 04/04/23 release cyclobenzaprine 10 mg tablet 10 mg PO BID PRN muscle spasm #60 01/25/23 04/04/23 tabs dulaglutide 4.5 mg/0.5 mL 4.5 mg (0.5 mL) subcut QWEEK #2 mL 02/08/23 04/04/23 subcutaneous pen injector benzonatate 100 mg capsule 100 mg PO TID PRN cough #30 caps 02/10/23 04/04/23 lancets 33 gauge #100 ea 02/10/23 04/04/23 albuterol sulfate 90 mcg/actuation 2 puff inhalation Q6H PRN #3 ea 02/17/23 04/04/23 aerosol inhaler (Proventil HFA) atorvastatin 40 mg tablet 40 mg PO QPM #90 tabs 02/17/23 04/04/23 zolpidem 10 mg tablet (Ambien) 10 mg PO HS PRN sleep #30 tab-caps 02/17/23 04/04/23 citalopram 20 mg tablet 20 mg PO DAILY #90 tabs 03/07/23 04/04/23 Previous Rx's Medication Instructions Recorded fluticasone propionate 110 2 puff inhalation BID #3 ea 01/16/19 mcg/actuation HFA aerosol inhaler (Flovent HFA) triamcinolone acetonide 0.1 % 1 applic topical BID #30 grams 01/16/19 topical cream iodpehvl-xhdczqbqo-tdmgjkncv 3.5 4 drp otic (ear) Q8H #10 mL 12/08/20 mg-10,000 unit/mL-1 % ear drops,susp fluticasone propionate 50 2 spray NS BID #3 grams 07/21/21 mcg/actuation nasal spray,suspension betamethasone valerate 0.1 % lotion 1 applic topical PRN #60 mL 01/26/22 glipizide 5 mg tablet 5 mg PO BID #180 tab-caps 01/26/22 blood sugar diagnostic #100 strips 06/14/22 ketorolac 0.5 % eye drops 1 drp ophthalmic (eye) QID 90 days 07/13/22 #10 mL ibuprofen 800 mg tablet 800 mg PO TID #270 tab-caps 07/26/22 metformin 1,000 mg tablet 1,000 mg PO DAILY diabetes #90 08/04/22 tab-caps lisinopril 10 mg tablet 10 mg PO DAILY #90 tab-caps 09/21/22 omeprazole 40 mg capsule,delayed 40 mg PO DAILY #90 tab-caps 09/21/22 release cyclobenzaprine 10 mg tablet 10 mg PO BID PRN muscle spasm #60 01/25/23 tabs dulaglutide 4.5 mg/0.5 mL 4.5 mg (0.5 mL) subcut QWEEK #2 mL 02/08/23 subcutaneous pen injector benzonatate 100 mg capsule 100 mg PO TID PRN cough #30 caps 02/10/23 lancets 33 gauge #100 ea 02/10/23 albuterol sulfate 90 mcg/actuation 2 puff inhalation Q6H PRN #3 ea 02/17/23 aerosol inhaler (Proventil HFA) atorvastatin 40 mg tablet 40 mg PO QPM #90 tabs 02/17/23 zolpidem 10 mg tablet (Ambien) 10 mg PO HS PRN sleep #30 tab-caps 02/17/23 citalopram 20 mg tablet 20 mg PO DAILY #90 tabs 03/07/23 Allergies Allergy/AdvReac Type Severity Reaction Status Date / Time erythromycin base Allergy Unknown Verified 02/10/23 13:16 Iodinated Contrast Media Allergy Unknown Verified 02/10/23 13:16 [Iodinated Contrast- Oral and IV Dye] nitrofurantoin Allergy Unknown Verified 02/10/23 13:16 oxycodone Allergy Unknown ITCHING Verified 02/10/23 13:16 Tetracyclines AdvReac Unknown N/V/D Verified 02/10/23 13:16 methylprednisolone AdvReac Verified 02/10/23 13:16 General Stated Complaint: Orthopedic DEBORAH: 3 Review of Systems Narrative: see HPI Exam Narrative Exam Narrative: General: Alert, well appearing, Head: Normocephalic, atraumatic Neck: Trachea midline, ?Neck supple. Cardiac: ?RRR, no murmurs appreciated Resp: No respiratory distress. Speaking in full sentences. Abd: ?Soft, non-distended, nontender Extremities: ?Right shoulder deformity. RUE held adducted and internally rotated. Strong symmetric radial pulses bilaterally. Sensation intact throughout RUE. Neurologic: GCS 15. ? Course Vital Signs Vital signs: Vital Signs Temperature 36.4 C L 04/04/23 00:27 Pulse 71 04/04/23 00:27 Respiratory Rate 20 04/04/23 00:27 Blood Pressure 177/87 H 04/04/23 00:27 Pulse Oximetry 96 04/04/23 00:27 Temperature 36.4 C L 04/04/23 00:27 Temperature Source Skin 04/04/23 00:27 Pulse 71 04/04/23 00:27 Respiratory Rate 20 04/04/23 00:27 Respiratory Effort Normal, Non-Labored 04/04/23 00:32 Blood Pressure 177/87 H 04/04/23 00:27 Blood Pressure Position Sitting 04/04/23 00:27 Pulse Oximetry 96 04/04/23 00:27 Oxygen Delivery Method Room Air 04/04/23 00:27 Oxygen Flow Rate 0 04/04/23 00:27 Pain Level 9 04/04/23 00:34 Procedures Joint Aspiration/Injection Joint Asp./Inject. 1: Time Out Performed: Yes Side of body: right Joint Aspirated: shoulder Ultrasound Guidance: No Skin Prep: Chlorhexidene Local Anesthetic: Lidocaine 2% Amount of anesthesia used (mL): 1 Needle Size Used: 18G Medication Injected, if any: Lidocaine Amount of Medication Injected (mls): 10 Patient Tolerated Procedure: well Complications: none Orthopedic Joint Reduction Joint #1: Time Out Performed: Yes Side: right Joint Reduction Location: shoulder Analgesia: other (joint injection) Shoulder Technique Used (if applicable): external rotation and other (Nelida) Post-reduction neuro exam: intact and no change Post-reduction vascular: intact Post Reduction X-Ray Obtained: Yes Post Reduction X-Ray Results: not reduced Patient Tolerated Procedure: well and no complications Medical Decision Making 62yo F with recent right shoulder dislocation after a fall presenting with right shoulder pain after moving in her sleep and feeling the shoulder pop out of joint. [facility] records reviewed; seen in the ED 04/01 with mulitple attempts at reduction by ED provider with shoulder injection and IM pain medication without success, subsequently reduced by orthopedics using Nelida technique with nerve block by anesthesia. Vital signs reassuring, on exam she has a clear right shoulder deformity. RUE neuromuscular intact, not concerned for vascular or neurologic injury, would not pursue advanced imaging. Given IM toradol and fentanyl. Plain films independently reviewed, anterior right shoulder dislocation; agree with radiology read below. Right shoulder injected with 10cc lidocaine without epinephrine with good effect on pain level. Reduction attempted with Nelida technique; joint movement felt and patient reports significant reduction in pain. Deformity no longer present. Remains n eurovascular intact. Placed in sling and taken to XR; post reduction films reviewed and shoulder remains dislocated; on repeat exam deformity again present. Patient did not feel any other joint movement, pops, clunks, or clicks after the reduction attempt. Discussed with orthopedics Dr. Walton; plan for nerve block with anesthesia when they are available in the morning, requested CT shoulder which was done and independently reviewed, dislocation and HS fx (read below). IV placed and switched to IV pain medication. Anesthesia to bedside in am, nerve block done; Dr. Walton to bedside and shoulder clinically reduced. Pending post-reduction film. Anticipate discharge home if reassuring. Signed out to oncoming clinician, plan to followup post reduction film, final ortho recs. Imaging Data Radiologic Study: Imaging: X-Ray Radiologist's impression: IMPRESSION: Anteroinferior medial dislocation of humeral head with respect to the glenoid. No discernible fracture Radiologic Study #2: Imaging: X-Ray Radiologist's impression: IMPRESSION: Persistent shoulder dislocation. No fracture. Radiologic Study #3: Imaging: CT Scan Radiologist's impression: IMPRESSION: There is an anteroinferior medial dislocation of the humerus with respect to the glenoid. There is a Hill-Sachs fracture deformity of the posterior head of the humerus which is presently impacted upon the anterior glenoid. There are multiple small osseous fragments adjacent to the anterior glenoid which are compatible with fracture fragments of indeterminate age, from the humerus and possibly from the glenoid as well. There is substantial fluid distension of the subacromial bursa. Quality:SDOH Health Related Social Needs: No Data to Display PFSH All Active Problems (Updated 04/04/23 @ 06:21 by Celso Michael MD) Fracture dislocation of right shoulder joint (Acute 04/04/23) Anterior shoulder dislocation (Acute) Closed dislocation of right shoulder (Acute) Closed dislocation of right glenohumeral joint (Acute 04/01/23) Anxiety and depression (Chronic) Chronic pain of right knee (Acute) 10/2020- s/p replacement x 2- flexeril daily tramadol only as needed Iron deficiency anemia (Acute) Dyshidrotic eczema (Chronic) Primary fibromyalgia syndrome (Acute 11/16/12) Other seasonal allergic rhinitis (Acute 12/06/14) Osteoarthritis of thumb (Acute 11/22/13) Obesity (Acute) Hyperlipidemia (Acute) Gastroesophageal reflux disease (Acute) Essential hypertension (Acute 01/04/17) Diabetes mellitus (Acute) Medical History Smoker quit 2006 >30 year Pack years Surgical History (Updated 01/18/20 @ 08:09 by Annie Perry NP) History of arthroscopy of knee History of unilateral oophorectomy Status post cholecystectomy Status post total knee replacement Replacement of total knee joint (~1994) 1994 RIGHT; 2004 RIGHT Oophrectomy, Right Oophrectomy, Left Abdominal hysterectomy (~1988) Cholecystectomy Arthroplasty of knee (~2003) Family History (Updated 01/17/19 @ 10:09 by Brant Person) Mother Diabetes Heart disease Hyperlipidemia Neoplasm SKIN Skin cancer Father Diabetes Heart disease Hyperlipidemia Prostate cancer Maternal Grandmother Diabetes Brother Hyperlipidemia Brother Fibromyalgia Hyperlipidemia Brother Fibromyalgia Hyperlipidemia Brother Fibromyalgia Hyperlipidemia Son No problems noted. 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 Pets and animals: Yes Pets and animals: cat(s) Sexually active: Yes Do you think of yourself as: straight/heterosexual Current gender identity: female What is your relationship status?: How often do you talk on the phone with friends or family?: three or more times per week How often do you get together with friends or relatives?: twice per week How often do you attend methodist or sikh services?: decline to answer Do you belong to any clubs or organized social groups?: decline to answer Panel score (0-1 are the most socially isolated patients): 2 What type of physical activity do you participate in: walking Duration: 15-30 minutes/day Frequency: daily No/Temple: Scientology Special no needs: No Seatbelt use: always Helmet use: Yes Helmet use: always Drive intox or ride w/intox caterpillar driver: No Do you feel safe at home: Yes Do you feel safe in your relationship?: Yes Victim of physical abuse: No Victim of emotional abuse: No Victim of sexual abuse: No Would you like helpful sources: No Sign Out Sign Out Data: Sign Out Comment: Right should dislocation/hill sachs. Initially occurred two days ago with fall, reduced, repeat dislocation overnight while moving in sleep. Now clinically reduced s/p Dr. Walton. Pending post reduction films to be viewed by Dr. Michael. Likely dc home with sling. Last updated by Ananya Ritchie MD at 04/04/23 07:59 Discharge Plan Disposition Patient Disposition: Home Condition: Good Discharge Details Clinical Impression: Anterior shoulder dislocation Primary Care Provider: Isidra Escalante ED Provider: Ananya Ritchie Home Meds and New Rx's Prescriptions: Continued triamcinolone acetonide 0.1 % cream 1 applic Topical BID Qty: 30 2RF Rx Instructions: Apply to feet fluticasone propionate [Flovent HFA] 110 mcg/actuation HFA aerosol inhaler 2 puff Inhalation BID Qty: 3 4RF Rx Instructions: 110MCG fluticasone propionate 50 mcg/actuation spray,suspension 2 spray NS BID Qty: 3 4RF (DME) lancets 33 gauge misc 1 ea Intradermal BID Qty: 100 5RF Rx Instructions: [id number] benzonatate 100 mg capsule 100 mg PO TID PRN (Reason: cough) Qty: 30 1RF Rx Instructions: Take 1-2 capsules by mouth three times a day as needed for cough omega-3 fatty acids 1,000 mg capsule 1,000 mg PO DAILY magnesium oxide 500 mg capsule 500 mg PO DAILY glucosamine sulfate 1,000 mg capsule 1,500 mg PO DAILY dzljnrrk-tpnpznmgs-OO 3.5-10,000-1 mg/mL-unit/mL-% drops,suspension 4 drp otic (ear) Q8H Qty: 10 0RF betamethasone valerate 0.1 % lotion 1 applic Topical PRN Qty: 60 3RF Rx Instructions: Massage 2 ml into scalp HS glipizide 5 mg tablet 5 mg PO BID Qty: 180 4RF Hold Instructions: Changed by Provider ([place]) blood sugar diagnostic Strip 1 strip Miscellaneous BID Qty: 100 4RF Rx Instructions: one daily ketorolac 0.5 % drops 1 drp Ophthalmic QID 90 Days Qty: 10 3RF ibuprofen 800 mg tablet 800 mg PO TID Qty: 270 4RF metformin 1,000 mg tablet 1,000 mg PO DAILY Qty: 90 3RF Hold Instructions: Changed by Provider omeprazole 40 mg capsule,delayed release(DR/EC) 40 mg PO DAILY Qty: 90 4RF lisinopril 10 mg tablet 10 mg PO DAILY Qty: 90 3RF cyclobenzaprine 10 mg tablet 10 mg PO BID PRN (Reason: muscle spasm) Qty: 60 2RF dulaglutide 4.5 mg/0.5 mL pen injector 4.5 mg subcut QWEEK Qty: 2 3RF albuterol sulfate [Proventil HFA] 90 mcg/actuation HFA aerosol inhaler 2 puff Inhalation Q6H PRN Qty: 3 4RF atorvastatin 40 mg tablet 40 mg PO QPM Qty: 90 3RF zolpidem [Ambien] 10 mg tablet 10 mg PO HS PRN (Reason: sleep) Qty: 30 0RF citalopram 20 mg tablet 20 mg PO DAILY Qty: 90 1RF Discontinued amoxicillin 500 mg capsule 2,000 mg PO ONCE Qty: 20 3RF Rx Instructions: 1 hour prior to dental visit Discharge Instructions Instructions: Shoulder Dislocation (ED) Additional Instructions: Please wear the sling while awake. Ice to reduce swelling and pain. Do not do any heavy lifting. Do not bring your arm above 90 degrees. Please take Tylenol or Ibuprofen with food every 4-6 hours as needed for pain and swelling. Follow up with orthopedics if needed, primary care provider in 3-5 days. Return to ED sooner if any worsening or concerns. Referrals: Isidra Escalante NP [Primary Care Provider] -
--- NOTE | 2023-04-04 02:14 | DI.VRAD_ITS ---
PROCEDURE INFORMATION: Exam: XR Right Shoulder Exam date and time: 04/04/2023 1:43 AM Age: 62 years old Clinical indication: Pain; Shoulder; Right; Patient HX: Previously disolcated, felt a 'pop' TECHNIQUE: Imaging protocol: Radiologic exam of the right shoulder. Views: 2 or more views. COMPARISON: CR XR SHOULDER RT COMP POST REDUC 04/01/2023 5:12 PM FINDINGS: Bones/joints: Anteroinferior medial dislocation of humeral head with respect to the glenoid. No discernible fracture. Soft tissues: Normal. IMPRESSION: Anteroinferior medial dislocation of humeral head with respect to the glenoid. No discernible fracture. Dictated and Authenticated by: Marv Marlow MD. Ordering:KESHAV Hare MD
--- NOTE | 2023-04-04 02:45 | DI.RAD_ITS ---
Exam(s) XR SHOULDER RT COMP POST REDUC EXAM: XR SHOULDER RT COMP POST REDUC CLINICAL HISTORY: post reduction. TECHNIQUE: 2D digital imaging was performed of the right shoulder. Three images were obtained. AP, Grashey and Y views were obtained. COMPARISON: CR,XR XR SHOULDER RT COMPLETE 2+V from 04/04/2023 FINDINGS: BONES: There is a curvilinear density seen interposed between the humeral head and the glenoid on the Y-view which may represent a displaced fracture fragment of the humeral head. No bony destructive l esion is seen. JOINTS: There is a persistent anterior and inferior dislocation of the right shoulder. Mild degenera tive changes are seen at the acromioclavicular joint. SOFT TISSUE: The visualized lungs are clear. IMPRESSION: 1. Persistent anterior inferior dislocation of the right shoulder. 2. Curvilinear density interposed between the humeral head and the glenoid suspicious for fracture fr agment. DATA REPOSITORY: RADIATION DOSE DELIVERED:
--- NOTE | 2023-04-04 03:30 | DI.CT_ITS ---
Exam(s) CT UPPER EXTREMITY RT WO EXAM: CT UPPER EXTREMITY RT WO CLINICAL HISTORY: shoulder dislocation. TECHNIQUE: Imaging Protocol: Axial computed tomography images with coronal and sagittal reformatted images were created and reviewed. COMPARISON: CR,XR XR SHOULDER RT COMP POST REDUC from 04/04/2023 CR,XR XR SHOULDER RT COMPLETE 2+V from 04/04/2023 FINDINGS: Bones: There are degenerative changes seen at the right sternoclavicular joint. Mild degenerative c hanges are seen at the acromioclavicular joint. There is a persistent anterior dislocation of the gl enohumeral joint. There is a Hill-Sachs deformity of the posterolateral humeral head. There are a f ew fracture fragments interposed between the glenoid and the humerus. There does appear to be some b lunting of the anterior inferior glenoid suggesting a Bankart fracture. Degenerative changes are see n in the visualized cervical and thoracic spine. No lytic or sclerotic lesions are identified. Soft Tissues: Coronary artery calcification and vascular calcification is present. There is fluid se en in the subacromial bursa. There is infiltration of the soft tissues inferior to the distal clavic le and coracoid process. IMPRESSION: 1. Persistent anterior inferior dislocation of the glenohumeral joint. 2. Hill-Sachs deformity of the humeral head. 3. There is some blunting of the anterior inferior glenoid suggesting a Bankart fracture. 4. Several osseous fragments interposed between the anterior glenoid and the humeral head suspicious for displaced fracture fragments. They may arise from either the humeral head or the glenoid. RADIATION DOSE DELIVERED: 1,164.8mGy.cm Total DLP 1,164.8mGy.cm Total DLP DATA REPOSITORY: All CT scans at this facility are submitted to the National Radiology Data Registry (NRDR) Dose Index Registry (DIR) with the [employer] ([employer]). RADIATION OPTIMIZATION: All CT scans at this facility use at least one of these dose optimization te chniques: automated exposure control; mA and/or kV adjustment per patient size (includes targeted exa ms where dose is matched to clinical indication); or iterative reconstruction.
[2023-04-04] MEDS: Lidocaine 2% Multi-Dose 20 ML VIAL IJ (03:34)
--- NOTE | 2023-04-04 03:37 | DI.VRAD_ITS ---
PROCEDURE INFORMATION: Exam: XR Right Shoulder Exam date and time: 04/04/2023 3:19 AM Age: 62 years old Clinical indication: Other: Post reduction TECHNIQUE: Imaging protocol: Radiologic exam of the right shoulder. Views: 2 or more views. COMPARISON: CR XR SHOULDER RT COMPLETE 2+V 04/04/2023 1:43 AM FINDINGS: Bones/joints: Persistent shoulder dislocation. No fracture. Soft tissues: Normal. IMPRESSION: Persistent shoulder dislocation. No fracture. Dictated and Authenticated by: Marv Marlow MD. Ordering:KESHAV Hare MD
[2023-04-04] MEDS: HYDROmorphone 2 MG/ML SYR 1 MG IM (03:52)
[2023-04-04] MEDS: Ketorolac 15 MG/ML VIAL IM (03:52)
--- NOTE | 2023-04-04 04:48 | DI.VRAD_ITS ---
PROCEDURE INFORMATION: Exam: CT Right Upper Extremity Without Contrast, Shoulder Exam date and time: 04/04/2023 4:12 AM Age: 62 years old Clinical indication: Pain; Right; Patient HX: Shoulder dislocation TECHNIQUE: Imaging protocol: Computed tomography of the right upper extremity without contrast. Exam focused on the shoulder. Radiation optimization: All CT scans at this facility use at least one of these dose optimization techniques: automated exposure control; mA and/or kV adjustment per patient size (includes targeted exams where dose is matched to clinical indication); or iterative reconstruction. COMPARISON: CR XR SHOULDER RT COMP POST REDUC 04/04/2023 3:19 AM FINDINGS: Bones/joints: There is an anteroinferior medial dislocation of the humerus with respect to the glenoid. There is a Hill-Sachs fracture deformity of the posterior head of the humerus which is presently impacted upon the anterior glenoid. There are multiple small osseous fragments adjacent to the anterior glenoid which are compatible with fracture fragments of indeterminate age, from the humerus and possibly from the glenoid as well. There is substantial fluid distension of the subacromial bursa. Soft tissues: See Bones/joints finding. IMPRESSION: There is an anteroinferior medial dislocation of the humerus with respect to the glenoid. There is a Hill-Sachs fracture deformity of the posterior head of the humerus which is presently impacted upon the anterior glenoid. There are multiple small osseous fragments adjacent to the anterior glenoid which are compatible with fracture fragments of indeterminate age, from the humerus and possibly from the glenoid as well. There is substantial fluid distension of the subacromial bursa. Dictated and Authenticated by: Marv Marlow MD. Ordering:KESHAV Hare MD
[2023-04-04] MEDS: HYDROmorphone 2 MG/ML SYR 1 MG IVP (04:49)
[2023-04-04] MEDS: Normal Saline 1,000 ML 150 ML IV (04:51)
--- NOTE | 2023-04-04 06:20 | W.ORTHOCONSU ---
Date of service: 04/04/23 Time of Service: 07:00 Assessment and Plan Assessment and plan (1) Fracture dislocation of right shoulder joint: Status: Acute Assessment and plan: 62-year-old female with second right shoulder anterior glenohumeral dislocation with hill-sachs fracture Patient describes external rotation, reaching away from her body in the middle of the night and suffering a second shoulder dislocation 3 days after her initial dislocation emergency room presentation. See my prior note for details. Denies any numbness or tingling about the extremity. No instability problems while maintaining a neutral to internally rotated position prior to this episode. Emergency room failed reduction attempt. Patient has received another short acting regional anesthetic to assist with my reduction attempt. Patient examined after nerve block has set up, paresthesias about the shoulder, comfortable about the shoulder. Denies any distal numbness or tingling. 2+ Right radial pulse. Demonstrates intact motor about the wrist and hand. Obvious anterior chest fullness and positive sulcus at the right shoulder with early surrounding edema ecchymosis. Right shoulder x-rays reviewed showing persistent anterior glenohumeral dislocation. CT scan shows Hill-Sachs impaction fracture with surrounding bone fragments, likely glenoid Bankart injury as well. No more significant fracture appreciated about the glenoid or proximal humerus. No obvious rotator cuff muscular atrophy. Unfortunately recurrent instability, reviewed with the patient again, heightened risk for persistent shoulder instability and/or rotator cuff dysfunction. Shoulder readily reduced using Nelida maneuver again. Post reduction neurovascular exam intact. Sling placed in internal rotated position. Postreduction x-rays confirm reduction, fracture fragments and Hill-Sachs difficult to visualize. Patient still wishing to travel to [place] in 3 days . We reviewed sling use and keeping her hand in front of her body avoiding really any external rotation, especially any combined external rotation and abduction. Better fitting sling fit on the patient. She would prefer to follow-up with me when she returns from her trip. My office will make the appropriate arrangements. Discussed the potential need for future shoulder surgery. Light use hand and fingers okay. Discussed with emergency room doctor. [facility] All Active Problems (Updated 04/04/23 @ 06:21 by Celso Michael MD) Fracture dislocation of right shoulder joint (Acute 04/04/23) Anterior shoulder dislocation (Acute) Closed dislocation of right shoulder (Acute) Closed dislocation of right glenohumeral joint (Acute 04/01/23) Anxiety and depression (Chronic) Chronic pain of right knee (Acute) 10/2020- s/p replacement x 2- flexeril daily tramadol only as needed Iron deficiency anemia (Acute) Dyshidrotic eczema (Chronic) Primary fibromyalgia syndrome (Acute 11/16/12) Other seasonal allergic rhinitis (Acute 12/06/14) Osteoarthritis of thumb (Acute 11/22/13) Obesity (Acute) Hyperlipidemia (Acute) Gastroesophageal reflux disease (Acute) Essential hypertension (Acute 01/04/17) Diabetes mellitus (Acute) Medical History Smoker quit 2006 >30 year Pack years Surgical History (Updated 01/18/20 @ 08:09 by Annie Perry NP) History of arthroscopy of knee History of unilateral oophorectomy Status post cholecystectomy Status post total knee replacement Replacement of total knee joint (~1994) 1994 RIGHT; 2004 RIGHT Oophrectomy, Right Oophrectomy, Left Abdominal hysterectomy (~1988) Cholecystectomy Arthroplasty of knee (~2003) Family History (Updated 01/17/19 @ 10:09 by Brant Person) Mother Diabetes Heart disease Hyperlipidemia Neoplasm SKIN Skin cancer Father Diabetes Heart disease Hyperlipidemia Prostate cancer Maternal Grandmother Diabetes Brother Hyperlipidemia Brother Fibromyalgia Hyperlipidemia Brother Fibromyalgia Hyperlipidemia Brother Fibromyalgia Hyperlipidemia Son No problems noted. 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 Pets and animals: Yes Pets and animals: cat(s) Sexually active: Yes Do you think of yourself as: straight/heterosexual Current gender identity: female What is your relationship status?: How often do you talk on the phone with friends or family?: three or more times per week How often do you get together with friends or relatives?: twice per week How often do you attend taoist or druze services?: decline to answer Do you belong to any clubs or organized social groups?: decline to answer Panel score (0-1 are the most socially isolated patients): 2 What type of physical activity do you participate in: walking Duration: 15-30 minutes/day Frequency: daily No/Restoration: Restorationism Special no needs: No Seatbelt use: always Helmet use: Yes Helmet use: always Drive intox or ride w/intox 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 haul 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: No Do you feel safe at home: Yes Do you feel safe in your relationship?: Yes Victim of physical abuse: No Victim of emotional abuse: No Victim of sexual abuse: No Would you like helpful sources: No Results Last Vital Signs Temp 97.5 F L 04/04/23 00:27 Pulse 71 04/04/23 00:27 Resp 20 04/04/23 00:27 BP 177/87 H 04/04/23 00:27 Pulse Ox 96 04/04/23 00:27 Labs 04/04/23 07:29 04/04/23 07:29 Procedures Orthopedic Joint Reduction Rt shoulder: Time out performed: Yes Side: right Joint reduction location: shoulder Analgesia: nerve block (Regional anesthetic from [employer]) Shoulder technique used (if applicable): other (Nelida) Technique used: direct manipulation Post-reduction neuro exam: intact Post-reduction vascular exam: intact Post-reduction x-ray obtained: Yes Post-reduction x-ray results: reduced Splint applied: Yes Patient tolerated procedure: well Additional comments: CPT #96456
--- NOTE | 2023-04-04 07:00 | RT.EKG_ITS ---
APPROVED REPORT Exam: Resting ECG Reason for Exam: preop Patient Location: E HR:79 bpm ECG Measurements Heart Rate 79 AXIS [place] 168 P 38 QRSd 76 QRS -22 QT [id number] T 19 QTc 0 Conclusion Sinus rhythm...normal P axis, V-rate 60- 99 Inferior infarct, old...Q >35mS, II III aVF Narrow complex normal sinus rhythm at a rate of 79. [place] within normal limits. QTc appears within nor mal limits. Mild ST segment depressions V4 through V6. No acute injury pattern. No prior for guillermina rison.
[2023-04-04 07:38] LABS: Abs Immature Grans 0.06 10^3/uL (0.0-0.06); Absolute Basophil Count 0.09 10^3/uL (0.0-0.2); Absolute Eosinophil Count 0.15 10^3/uL (0.0-0.7); Absolute Monocyte Count 0.73 10^3/uL (0.1-0.8); Basophils % 0.6; HCT 34.8 % (36.0-46.0); HGB 11.2 g/dL (11.2-15.7); Immature Grans % 0.4; Lymphocytes % 23.4; MCH 28.8 pg (27.0-33.0); MCHC 32.2 % (32.0-36.0); MCV 90 fL (80-95); MPV 9.3 fL (8.0-11.0); Monocytes % 4.9; Neutrophils % 69.7; Platelet Count 273 10^3/uL (130-400); RBC 3.89 10^6/uL (3.93-5.22); RDW 13.7 % (11.7-14.6); RDW-SD 44.7 fL; WBC 14.85 10^3/uL (4.4-10.8)
[2023-04-04 07:39] LABS: Absolute Lymphocyte Count 3.47 10^3/uL (1.2-3.4); Absolute Neutrophil Count 10.35 10^3/uL (1.2-6.7)
[2023-04-04 07:56] LABS: ALT 28 U/L (14-59); AST 17 U/L (15-37); Albumin 3.5 g/dL (3.4-5.0); Alkaline Phosphatase 93 U/L (46-116); Anion Gap 10.2 mmol/L (3-11); BUN 9 mg/dL (7-18); Bilirubin, Total 0.4 mg/dL (0.2-1.0); CO2 23.8 mmol/L (21.0-32.0); CREATININE 0.8 mg/dL (0.55-1.02); Calcium 8.6 mg/dL (8.5-10.1); Chloride 103 mmol/L (98-107); Estimated GFR 82.74 (mL/min/1.73m2); Glucose 141 mg/dL (74-106); Potassium 3.8 mmol/L (3.5-5.1); Sodium 137 mmol/L (136-145); Total Protein 7.4 g/dL (6.4-8.2)
--- NOTE | 2023-04-04 08:10 | NUR.NOTE ---
Nursing Note: time out for a nerve block procedure was performed. Pateint tolerated nerve block well see chart for WNL VS. Orthopedic Surgeon reduced shoulder dislocation. Patient tolerated this procedure well
[2023-04-04 08:19] LABS: PTT Activated 26.5 sec (23.6-32.8); Prothrombin Time 9.9 sec (9.1-11.1)
--- NOTE | 2023-04-04 08:23 | DI.RAD_ITS ---
Exam(s) XR SHOULDER RT COMP POST REDUC EXAM: XR SHOULDER RT COMP POST REDUC CLINICAL HISTORY: post reduction. TECHNIQUE: 2D digital imaging was performed of the right shoulder. Four images were obtained. AP, Grashey and Y views were obtained. COMPARISON: CR,XR XR SHOULDER RT COMP POST REDUC from 04/04/[address] UPPER EXTREMITY RT WO from 04/04/2023 FINDINGS: BONES: The Hill-Sachs deformity is best appreciated on the CT scan of the shoulder. No bony destruct aggie lesion is seen. JOINTS: There has been successful reduction of the right shoulder dislocation. There are degenerativ e changes seen at the acromioclavicular joint. SOFT TISSUE: The visualized lungs are clear. IMPRESSION: Successful reduction of the right shoulder dislocation. DATA REPOSITORY: RADIATION DOSE DELIVERED:
--- NOTE | 2023-04-04 08:38 | W.ANESNERVE ---
Nerve Block Single Injection Procedure Date and Time Date Performed: 04/04/23 Procedure Start: 07:14 Location Where Procedure Performed Procedure Location: Emergency Department Reason Performed: Acute Pain Management Pain Diagnosis: Shoulder Pain Requesting Provider: Celso Michael Timeout Performed Timeout Performed: Yes Monitoring Used ECG, Blood Pressure, SpO2 and ETCO2 Sterility Sterility: Hand Hygiene, Surgical Cap, Surgical Mask, Sterile Gloves and Chlorhexidine Sedation Given During Procedure Sedation Given (Indicate Dose Given): No Sedation given Patient Mental Status Patient Mental Status: Awake Nerve Block 1st Nerve Block: Laterality: Right Block Type: Interscalene Ultrasound Image Saved?: Yes Needle / Catheter Used: 100mm SonoPlex II Local Anesthetic Bolus (Indicate Dose Given): Lidocaine used for local infiltration of skin, Injected in 3-5ml increments after negative blood aspiration and Chloroprocaine 3% Dose:: 20mL Additives (Indicate Dose Given): None Ultrasound: Sterile probe cover and gel used Nerve Stimulator: Supplement to Ultrasound use Paresthesia: None Procedure Tolerated: No Complications and Patient tolerated well Procedure Outcome: Successful Performed By: Kiana Mayo Supervised By: Ambrose Roman
--- NOTE | 2023-04-04 09:37 | W.EDPROG ---
Date of service: 04/04/23 Time of Service: 08:00 Medical Decision Making [id number]-signout received from Dr. Ma. Please see her initial documentation for presentation, examination, and treatment. Patient signed out pending postreduction films and orthopedics blessing to go home. Postreduction films were appropriate and orthopedic improved discharge home and arranged follow-up appointment for patient. After discussion of diagnosis and plan of care patient has no further needs, questions, or concerns and states clear understanding to return to the emergency department for any worsening symptoms. This documentation was generated using Maestranoation system, please disregard any oddities of phrase or misspellings. Quality:SDOH Health Related Social Needs: No Data to Display Exam Const General: cooperative, no acute distress and not ill appearing Orientation: alert, awake and oriented x3 HENMT Mouth: moist mucous membranes Resp Effort & Inspection: normal respiratory effort, able to speak in complete sentences and no respiratory distress Neuro General: patient alert, patient awake and patient oriented x3 Sign Out Sign Out Data: Sign Out Comment: Right should dislocation/hill sachs. Initially occurred two days ago with fall, reduced, repeat dislocation overnight while moving in sleep. Now clinically reduced s/p Dr. Walton. Pending post reduction films to be viewed by Dr. Michael. Likely dc home with sling. Last updated by Ananya Ritchie MD at 04/04/23 07:59 Discharge Plan Disposition Patient Disposition: Home Condition: Good Discharge Details Clinical Impression: Anterior shoulder dislocation Primary Care Provider: Isidra Escalante ED Provider: Glen Dotson Home Meds and New Rx's Prescriptions: Continued triamcinolone acetonide 0.1 % cream 1 applic Topical BID Qty: 30 2RF Rx Instructions: Apply to feet fluticasone propionate [Flovent HFA] 110 mcg/actuation HFA aerosol inhaler 2 puff Inhalation BID Qty: 3 4RF Rx Instructions: 110MCG fluticasone propionate 50 mcg/actuation spray,suspension 2 spray NS BID Qty: 3 4RF (DME) lancets 33 gauge misc 1 ea Intradermal BID Qty: 100 5RF Rx Instructions: DX:[id number] benzonatate 100 mg capsule 100 mg PO TID PRN (Reason: cough) Qty: 30 1RF Rx Instructions: Take 1-2 capsules by mouth three times a day as needed for cough omega-3 fatty acids 1,000 mg capsule 1,000 mg PO DAILY magnesium oxide 500 mg capsule 500 mg PO DAILY glucosamine sulfate 1,000 mg capsule 1,500 mg PO DAILY [id number] 3.5-10,000-1 mg/mL-unit/mL-% drops,suspension 4 drp otic (ear) Q8H Qty: 10 0RF betamethasone valerate 0.1 % lotion 1 applic Topical PRN Qty: 60 3RF Rx Instructions: Massage 2 ml into scalp HS glipizide 5 mg tablet 5 mg PO BID Qty: 180 4RF Hold Instructions: Changed by Provider ([place]) blood sugar diagnostic Strip 1 strip Miscellaneous BID Qty: 100 4RF Rx Instructions: one daily ketorolac 0.5 % drops 1 drp Ophthalmic QID 90 Days Qty: 10 3RF ibuprofen 800 mg tablet 800 mg PO TID Qty: 270 4RF metformin 1,000 mg tablet 1,000 mg PO DAILY Qty: 90 3RF Hold Instructions: Changed by Provider omeprazole 40 mg capsule,delayed release(DR/EC) 40 mg PO DAILY Qty: 90 4RF lisinopril 10 mg tablet 10 mg PO DAILY Qty: 90 3RF cyclobenzaprine 10 mg tablet 10 mg PO BID PRN (Reason: muscle spasm) Qty: 60 2RF dulaglutide 4.5 mg/0.5 mL pen injector 4.5 mg subcut QWEEK Qty: 2 3RF albuterol sulfate [Proventil HFA] 90 mcg/actuation HFA aerosol inhaler 2 puff Inhalation Q6H PRN Qty: 3 4RF atorvastatin 40 mg tablet 40 mg PO QPM Qty: 90 3RF zolpidem [Ambien] 10 mg tablet 10 mg PO HS PRN (Reason: sleep) Qty: 30 0RF citalopram 20 mg tablet 20 mg PO DAILY Qty: 90 1RF Discontinued amoxicillin 500 mg capsule 2,000 mg PO ONCE Qty: 20 3RF Rx Instructions: 1 hour prior to dental visit Discharge Instructions Instructions: Shoulder Dislocation (ED) Additional Instructions: Please wear the sling while awake. Ice to reduce swelling and pain. Do not do any heavy lifting. Do not bring your arm above 90 degrees. Please take Tylenol or Ibuprofen with food every 4-6 hours as needed for pain and swelling. Follow up with orthopedics if needed, primary care provider in 3-5 days. Return to ED sooner if any worsening or concerns. Referrals: Isidra Escalante NP [Primary Care Provider] -
== END 2023-04-04 09:57 | disposition home or self-care (01) ==
PROVIDERS: Student in an Organized Health Care Education/Training Program; Emergency Provider Nurse Practitioner Family; PCP Nurse Practitioner Family
DX: M24.411 Recurrent dislocation, right shoulder (principal); S42.291A Other displaced fracture of upper end of right humerus, initial encounter for closed fracture; Z87.891 Personal history of nicotine dependence; X58.XXXA Exposure to other specified factors, initial encounter
CPT/HCPCS: 00123; 23650; 36415; 73030; 80053; 93005; 96372; 96374; 99285; 73200; 85025; 85610; 85730; 93010; J1170; J1885; J2003; J2401; J3010

== ENCOUNTER 2023-05-03 15:54 | Outpatient (CLI) | payer OTHER, SELFPAY ==
--- NOTE | 2023-05-03 09:15 | DI.RAD_ITS ---
Exam(s) XR SHOULDER RT COMPLETE 2+V EXAM: XR SHOULDER RT COMPLETE 2+V CLINICAL HISTORY: F/U SHOULDER DISLOCATION. TECHNIQUE: 2D digital imaging was performed. Five views. COMPARISON: CR,XR XR SHOULDER RT COMP POST REDUC from 04/04/2023 CR XR SHOULDER RT COMP POST REDUC from 04/04/2023 FINDINGS: BONES: Hill-Sachs defect noted in the posterior humeral head. No bony destructive lesion is seen. S purring at greater tuberosity. JOINTS: The humeral head is normally positioned. The glenohumeral joint space is maintained. Mild s purring at the AC joint. SOFT TISSUE: Normal. IMPRESSION: Hill-Sachs deformity of the posterior humeral head. Glenohumeral joint is normally aligned. DATA REPOSITORY: RADIATION DOSE DELIVERED:
== END 2023-05-03 15:55 | disposition home or self-care (01) ==
LOC: DIORS 15:54
PROVIDERS: PCP Nurse Practitioner Family; Visit Provider Student in an Organized Health Care Education/Training Program
DX: S42.191D Fracture of other part of scapula, right shoulder, subsequent encounter for fracture with routine healing (principal); X58.XXXD Exposure to other specified factors, subsequent encounter
CPT/HCPCS: 73030

== ENCOUNTER 2023-05-04 09:33 | Outpatient (REF) | payer OTHER, SELFPAY ==
[2023-05-04 12:34] LABS: Bilirubin Negative (Negative); Blood Negative (Negative); Clarity Clear (Clear); Glucose Negative (Negative); Ketones Negative (Negative); Leukocyte Esterase Small (Negative); Nitrite Positive (Negative); Specific Gravity >= 1.030 (1.005-1.025); Urobilinogen 0.2 mg/dL (Up to 0.2)
[2023-05-04 12:42] LABS: Epithelial Cells Few HPF (Negative); RBC Negative HPF (0-2)
[2023-05-04 12:43] LABS: Bacteria Many HPF (Negative); C & S Indicated? Yes; Casts Negative LPF (Negative); Crystals Negative HPF (Negative); Mucus Trace (Negative); Other Cells Negative (Negative)
== END 2023-05-04 09:34 | disposition home or self-care (01) ==
LOC: LBN 09:33
PROVIDERS: PCP Nurse Practitioner Family; Visit Provider Family Medicine
DX: N39.0 Urinary tract infection, site not specified (principal)
CPT/HCPCS: 87077; 81003; 81015; 87086; 87186

== ENCOUNTER → 2023-05-05 01:46 | Outpatient (CLI) | payer OTHER, SELFPAY ==
--- NOTE | 2023-05-05 08:00 | DI.MRI_ITS ---
Exam(s) MR UPPER JOINT RT WO EXAM: MR UPPER JOINT RT WO CLINICAL HISTORY: PAIN,LOOSE BODY RT SHOULDER,INSTABILITY,FX DISLOCATION,M24.011,M25.311,S42.. TECHNIQUE: Multiplanar multisequence MRI was performed. COMPARISON: 02 May 2013 FINDINGS: BONES: Hill-Sachs deformity posterosuperior humeral head with some residual marrow edema. Edema in i nferior anterior glenoid and deformity of the anterior inferior labrum consistent with Bankart lesion .. JOINTS:The acromioclavicular joint shows mild spurring. The glenohumeral joint shows an effusion as well as residual blood products. No joint space loose bodies visible. TENDONS: Supraspinatus: Full-thickness tear with mild retraction. Mild supraspinatus muscle atrophy. Infraspinatus: Unremarkable. Subscapularis: Fibers are indistinct which could indicate partial tear. Teres Minor: Unremarkable. Biceps and [place]: No biceps tendon tear. Small amount of fluid is seen within the biceps tendon she ath. There is also a few rounded high T1 signal, low T2 signal densities which may represent residua l blood products. MUSCLES: Unremarkable. SOFT TISSUES: Unremarkable. OTHER: Subacromial and subdeltoid bursae shows a small amount of fluid. Small amount of fluid in ricks bcoracoid bursa.. IMPRESSION: Hill-Sachs deformity. Mild Bankart deformity. Small residual hemarthrosis. Full-thickness tear with retraction of the supraspinatus tendon. Probable subscapularis partial tear. DATA REPOSITORY:
== END ==
PROVIDERS: PCP Nurse Practitioner Family; Visit Provider Student in an Organized Health Care Education/Training Program
DX: M75.121 Complete rotator cuff tear or rupture of right shoulder, not specified as traumatic
CPT/HCPCS: 73221

== ENCOUNTER 2023-05-12 12:02 | Day surgery (SDC) | payer OTHER, SELFPAY ==
--- NOTE | 2023-05-12 07:12 | PDOC.DSDIS_ITS ---
Date of service: 05/16/23 Time of Service: 16:00 Discharge Plan Disposition Patient Disposition: Home Condition: Stable Discharge Details Attending Provider: Celso Michael Primary Care Provider: Isidra Escalante Home Meds and New Rx's Prescriptions: No Action triamcinolone acetonide 0.1 % cream 1 applic Topical BID Qty: 30 2RF Rx Instructions: Apply to feet fluticasone propionate [Flovent HFA] 110 mcg/actuation HFA aerosol inhaler 2 puff Inhalation BID Qty: 3 4RF Rx Instructions: 110MCG fluticasone propionate 50 mcg/actuation spray,suspension 2 spray NS BID Qty: 3 4RF (DME) lancets 33 gauge misc 1 ea Intradermal BID Qty: 100 5RF Rx Instructions: [id number] dulaglutide 4.5 mg/0.5 mL pen injector 4.5 mg subcut QWEEK Qty: 2 3RF omega-3 fatty acids 1,000 mg capsule 1,000 mg PO DAILY magnesium oxide 500 mg capsule 500 mg PO DAILY glucosamine sulfate 1,000 mg capsule 1,500 mg PO DAILY dvsoerfx-suvujhppm-YS 3.5-10,000-1 mg/mL-unit/mL-% drops,suspension 4 drp otic (ear) Q8H Qty: 10 0RF betamethasone valerate 0.1 % lotion 1 applic Topical PRN Qty: 60 3RF Rx Instructions: Massage 2 ml into scalp HS (DME) blood sugar diagnostic Strip 1 strip Miscellaneous BID Qty: 100 4RF Rx Instructions: one daily ketorolac 0.5 % drops 1 drp Ophthalmic QID 90 Days Qty: 10 3RF omeprazole 40 mg capsule,delayed release(DR/EC) 40 mg PO DAILY Qty: 90 4RF lisinopril 10 mg tablet 10 mg PO DAILY Qty: 90 3RF albuterol sulfate [Proventil HFA] 90 mcg/actuation HFA aerosol inhaler 2 puff Inhalation Q6H PRN Qty: 3 4RF atorvastatin 40 mg tablet 40 mg PO QPM Qty: 90 3RF citalopram 20 mg tablet 20 mg PO DAILY Qty: 90 1RF zolpidem [Ambien] 10 mg tablet 10 mg PO HS PRN (Reason: sleep) Qty: 30 0RF ibuprofen 800 mg tablet 800 mg PO TID Qty: 270 4RF cyclobenzaprine 10 mg tablet 10 mg PO BID PRN (Reason: muscle spasm) Qty: 60 2RF phentermine 15 mg capsule 15 mg PO DAILY Qty: 28 0RF Hold Instructions: Has not started yet per pt Rx Instructions: must administer 2 hours after breakfast aspirin [Adult Aspirin Regimen] 81 mg tablet,delayed release (DR/EC) 81 mg PO DAILY Discharge Instructions Additional Instructions: Surgery: [Right] shoulder arthroscopy with [rotator cuff repair, biceps tenodesis, extensive debridement, and subacromial decompression.] Activity: [For 6 weeks,] you should keep your arm at your side in a neutral position at all times except for physical therapy. Do not try to lift or raise your arm using your own muscles. You should use the sling whenever you are out of the house. You may have to adjust the abduction pillow or remove it for comfort. At home it is best to remove the sling and rest the arm on a pillow at your side or support the operative side with your other hand. You may allow the arm to dangle at your side. A physical therapy prescription will be sent electronically to begin in about 3 weeks. [You should gradually increase range of motion motion and use of your shoulder. You may use your shoulder for all regular activities while protecting biceps repair. Avoid any weighted elbow flexion or resisted supination for 6-8 weeks. No heavy lifting, reaching overhead, or lifting away from body for approximately 2-3 months. You may use the sling whenever you are out of the house for a few weeks. At home it is best to remove the sling and rest the arm on a pillow at your side or support the operative side with your other hand. A physical therapy prescription will be sent electronically to start in about 2 we eks.] Prescriptions: Aspirin 81 mg take 1 daily to prevent a blood clot for 7 days Naproxen 250 mg take 1-2 every 12 hours with a meal as needed for moderate pain Oxycodone 5 mg take 1-2 every 4-6 hours as needed for severe pain You may use rnfl-drq-avoakxt Tylenol (acetaminophen) as needed for mild pain. These pain medications may be taken all at once or in different combinations as needed. Also, recommend Colace (docusate) as a stool softener as surgery and pain medicine cause constipation. You may try uczo-sfb-zudqytq diphenhydramine (Benadryl) 25-50 mg nightly as a sleep aid Dressings: Remove shoulder bandage after 3 days. Leave the sticky Steri-Strips in place until they fall off or remove them after you shower. Cover the incisions with Band-Aids or leave them open to air. [The biceps bandage (inside upper arm) is glued on separately. You may leave this one on a few days longer if it is difficult to remove. There is also glue underneath this bandage that can be left in place until it peels off.] You may shower after 5 days. Follow-up: 10-[address] Michael You may take off the leg compression stockings this evening at home. You may also leave them on a few days longer if you have a history of leg swelling or edema. Let us know right away if you develop any redness, drainage, fevers, chest pain, or trouble breathing. Do not drink alcohol or drive for at least 24 hours after anesthesia. Please call the office during business hours with any questions or concerns. Discharge Orders Discharge Orders: Discharge Order (Routine); Ordered 05/12/23 Ordered By: Magan Hollis DS: Diagnosis Discharge Diagnosis (1) Traumatic tear of right rotator cuff: Status: Acute (2) Tear of right glenoid labrum: Status: Acute (3) Hill Sachs deformity, right: Status: Acute (4) Loose body in right shoulder: Status: Acute
[2023-05-12 12:30] VITALS: BP 125/77; PULSE 67; RESP 16; TEMP 36.4; O2SAT 97
[2023-05-12] MEDS: Lactated Ringers 1,000 ML 30 ML IV (12:57)
== END 2023-05-12 12:03 | disposition home or self-care (01) ==
LOC: SUR 12:02
PROVIDERS: PCP Nurse Practitioner Family; Visit Provider Student in an Organized Health Care Education/Training Program
DX: Z53.09 Procedure and treatment not carried out because of other contraindication (principal)
CPT/HCPCS: J0665; J1100; J1885; J2001; J2371; J2405; J2704

== ENCOUNTER 2023-05-16 08:52 | Day surgery (SDC) | payer OTHER, SELFPAY ==
[2023-05-16] VITALS (9 sets, daily range): BP systolic 130–154; BP diastolic 48–111; PULSE 69–92; RESP 16–20; TEMP 36.4–36.7; O2SAT 92–97; BMI 36.6
--- NOTE | 2023-05-16 10:16 | ROE_ITS ---
Date of service: 05/16/23 Time of Service: 10:30 Operative Note Operative Note DATE OF PROCEDURE: 05/16/23 PRE-OP DIAGNOSIS: Right: 1. Recurrent instability 2. Labral tear 3. Loose bodies 4. Hill-Sachs defect 5. Rotator cuff tear 6. Possible partial biceps tearing and SLAP tear POST-OP DIAGNOSIS: same PROCEDURE: Right: 1. Rotator cuff repair, CPT# 58082. This involved repair of the supraspinatus using anchors and sutures to reattach the rotator cuff back to the footprint of the greater tuberosity. 2. Labral repair/stabilization, CPT #08181: This involved suture anchor repair of the anterior and anterior-inferior labrum capsule ligamentous complex 3. Arthroscopic biceps tenodesis, CPT# 95004. This involved arthroscopically suturing and reattaching the long head of the biceps tendon to the proximal humerus at the superior margin of the bicipital groove with a screw at the correct tension. 4. Extensive debridement, CPT# 52052. This involved using arthroscopic hand instruments, power instruments, and radiofrequency instruments to remove multiple small osseous and chondral loose bodies, debride SLAP tearing, debride humeral head Hill-Sachs lesion, and remove abundant synovitis anteriorly and superiorly working within the glenohumeral joint anteriorly, superiorly and posteriorly. 5. Subacromial decompression with minimal acromioplasty, CPT# 24845. This involved using arthroscopic power instruments and a radiofrequency wand to complete a bursectomy and smooth the undersurface of the acromion. The historian research assistant was medically required in order to help assist in techniques above, which require positioning the arm, holding the arthroscope, and manipulating multiple instruments and sutures at the same time. This cannot be done without the help of an experienced historian research assistant. SURGEON: Celso Michael CELL TENDER HELPER: Magan Hollis ANESTHESIA TYPE: Local By Surgeon, General LMA/ETT and Primary Nerve Block Refer to Anesthesia Record ESTIMATED BLOOD LOSS: 10 PATHOLOGY: none sent COMPLICATIONS: None Patient was transported to: PACU Patient's condition: stable Implants: Arthrex: 4.75mm SwiveLocks x 3, 5.5mm SwiveLock x 2, and 2.9 mm PushLock x 3 Indications: The patient was diagnosed with the above conditions and appropriately indicated for surgical intervention. Please see complete medical record for details. Findings: Exam under anesthesia: Left shoulder instability with mechanical sensation e ngaging Hill-Sachs lesion and wide abduction external rotation, full flexion, and majority external rotation with downward pressure maintaining reduced joint. Glenohumeral joint: Significant anterior synovitis, obvious SLAP tear continuing into anterior labrum and anterior-inferior labrum tearing with poor frayed delaminated and multiply torn anterior labrum. Intact subscapularis. Unstable biceps anchor SLAP tear with moderate grade partial intra-articular and bicipital groove biceps tendon tearing. Mild generalized chondromalacia. Mild bone loss anterior inferior glenoid margin. Multiple small osseous and chondral loose bodies. Subacromial space: Significant bursitis. Full-thickness supraspinatus moderately retracted crescent-shaped tear, which continued into the large Hill-Sachs lesion posterior humeral head beneath largely intact infraspinatus. Procedure Description: In the operating room, general anesthesia was induced. Bilateral shoulders were examined. The patient was positioned in the beachchair position. All bony prominences were well-padded. Preoperative antibiotics were administered. The shoulder was prepped and draped in the usual sterile fashion. The correct patient, procedure, and side of the procedure were all verified prior to incision. Starting through the posterior portal a standard complete diagnostic arthroscopy was performed of the glenohumeral joint including inspection of the long head of the biceps, anterior and superior labrum, subscapularis tendon, supraspinatus and infraspinatus tendons, and axillary recess. The glenoid and humeral head cartilage as well as the posterior labrum were inspected from an anterior viewing portal. Significant findings and interventions noted above. Significant time was spent performing extensive debridement including thorough resection of all small osseous and chondral loose bodies that had been created as part of the dislocations from the posterior humeral head and anterior- inferior glenoid margin. Working through numerous portals and scrutinizing the subcoracoid space and axillary recess care was taken to ensure all were removed. The superior labrum SLAP tear was debrided to a stable margin after securing the biceps tendon. The labrum tear tissue was debrided and prepared from about 5:00 to 3:00. The biceps tendon was secured using a loop and tack method with a suture tape FiberLink around the tendon, through the tendon, and then around and through the tendon again for extra fixation given the tendon tearing. The biceps was tenotomized from the superior labrum and this repair suture retracted at the lateral alexys lateral cannula for later repair with the rotator cuff. A low anterior portal rigid cannula inserted over the subscapularis targeting the anterior inferior glenoid for labral repair stabilization. The second working portal was a passport cannula anterior superior lateral working through the supraspinatus defect instead of the usual high anterior additional portal. The bony glenoid margin as well as the labrum capsule was thoroughly prepared to optimize tissue and healing. The 90 degree lasso was used to shuttle a FiberLink about the inferior most aspect of the labral tear incorporating the anterior inferior glenohumeral ligament and adjacent capsule for additional stabilization and secured to a 2.9 mm push lock anchor at about the 5 o'clock position. The repair was continued more anteriorly with additional suture tape FiberLink shuttled around the capsular labral tissue at 4:00 secured to another push lock anchor and lastly at 3:00. There was reasonably good reapposition of anterior soft tissues and reduction of the capacious anterior space. The anterior labrum and cartilage was not normal given the amount of damage from the injury. Decision was made to stop at the anterior mid level to avoid undue stiffness and treat the SLAP tear with a more predictable biceps tenodesis given the combination of SLAP tearing and biceps tendon tearing. Starting through the posterior portal, the arthroscope was directed into the subacromial space. A lateral 50 yard line lateral portal was created. A combination of power instruments and a radiofrequency ablator were used to debride bursitis anteriorly, posteriorly, and laterally as well as expose and smooth minimal bone spurring on the undersurface of the acromion. The coracoacromial ligament was minimally released. The bursectomy was completed viewing laterally and working from posteriorly and the rotator cuff was thoroughly inspected with findings noted above. The supraspinatus tear was thoroughly inspected with cuff grasper, the greater tuberosity was prepared to optimize bone and rotator cuff healing removing fibrinous soft tissue remains and preparing the bone with very gentle light decortication to maintain bone quality in this setting. The supraspinatus looked amenable to a speed bridge type II medial to lateral repair configuration. The large Hill-Sachs lesion could be visualized from anterior and lateral and elevated to work through the subacromial space for repair instead of through the joint. The bone quality in the Hill-Sachs lesion was quite poor as inspected given the fracture type injury. It did not appear the Hill-Sachs lesion would accommodate multiple suture anchors without fracture or bone fixation problem. Far posteriorly the needle followed by switching stick and then half pipe spear was used to percutaneously work through the intact infraspinatus targeting the central aspect of the Hill-Sachs lesion off of the articular margin where there was a small rim of reasonably good bone. The undersized punch followed by the tap was used to insert a knotless 4.75 mm SwiveLock anchor with repair tapes to be combined with the supraspinatus rotator cuff repair. The knotless repair mechanism was used to complete the medial row aspect of the remplissage with the scorpion suture passer used to shuttle a repair suture in a horizontal simple configuration more anteriorly and then shuttled back through its own anchor eyelet mechanism and adjust lightly tensioned with final tensioning done after completion of the cuff repair. The supraspinatus tear was then addressed with 2 Medial Row 4.75 mm SwiveLock anchors loaded with FiberTape's. The anterior medial anchor also had the biceps tendon repair suture and was just posterior to the bicipital groove completing the biceps tenodesis. The anterior FiberTape for shuttled through the anterior aspect of the supraspinatus at the appropriate level medially using a FiberLink. The posterior supraspinatus anchor, which was the central medial row anchor, FiberTape's were then shuttled individually through the supraspinatus more centrally and posteriorly. A single medial tape from each of the 3 medial anchors was then retrieved out laterally and secured with appropriate tension over the supraspinatus repair and infraspinatus remplissage to an anterior and then posterior lateral row anchors. There was good tissue coverage over the greater tuberosity and the repair was stable through testing. Lastly, the remplissage remaining repair suture was lightly checked and confirmed to be tension. The shoulder was drained of arthroscopic fluid. All portal sites were copiously irrigated. These incisions were closed using 3-0 Monocryl in a buried fashion and then covered with Mastisol, Steri-Strips, Xeroform, dry gauze, and ABDs. The dressings were covered and secured with Medipore tape. The operative extremity was placed into a sling for immobilization. The patient awoke from anesthesia without complication and was transferred to the recovery room in a stable condition.
--- NOTE | 2023-05-16 10:17 | W.PM.DSUDISC ---
Date of service: 05/16/23 Time of Service: 15:30 Discharge Plan Disposition Patient Disposition: Home Condition: Stable Discharge Details Attending Provider: Celso Michael Primary Care Provider: Isidra Escalante Home Meds and New Rx's Prescriptions: New naproxen 250 mg tablet 250 - 500 mg PO BID PRNQty: 40 0RF Rx Instructions: take with a meal tramadol 50 mg tablet 50 mg PO Q8H PRN (Reason: severe pain) Qty: 9 0RF Continued triamcinolone acetonide 0.1 % cream 1 applic Topical BID Qty: 30 2RF Rx Instructions: Apply to feet fluticasone propionate [Flovent HFA] 110 mcg/actuation HFA aerosol inhaler 2 puff Inhalation BID Qty: 3 4RF Rx Instructions: 110MCG fluticasone propionate 50 mcg/actuation spray,suspension 2 spray NS BID Qty: 3 4RF (DME) lancets 33 gauge misc 1 ea Intradermal BID Qty: 100 5RF Rx Instructions: [id number]:[id number] dulaglutide 4.5 mg/0.5 mL pen injector 4.5 mg subcut QWEEK Qty: 2 3RF omega-3 fatty acids 1,000 mg capsule 1,000 mg PO DAILY magnesium oxide 500 mg capsule 500 mg PO DAILY glucosamine sulfate 1,000 mg capsule 1,500 mg PO DAILY yombsbzg-itejxylso-VC 3.5-10,000-1 mg/mL-unit/mL-% drops,suspension 4 drp otic (ear) Q8H Qty: 10 0RF betamethasone valerate 0.1 % lotion 1 applic Topical PRN Qty: 60 3RF Rx Instructions: Massage 2 ml into scalp HS (DME) blood sugar diagnostic Strip 1 strip Miscellaneous BID Qty: 100 4RF Rx Instructions: one daily ketorolac 0.5 % drops 1 drp Ophthalmic QID 90 Days Qty: 10 3RF omeprazole 40 mg capsule,delayed release(DR/EC) 40 mg PO DAILY Qty: 90 4RF lisinopril 10 mg tablet 10 mg PO DAILY Qty: 90 3RF albuterol sulfate [Proventil HFA] 90 mcg/actuation HFA aerosol inhaler 2 puff Inhalation Q6H PRN Qty: 3 4RF atorvastatin 40 mg tablet 40 mg PO QPM Qty: 90 3RF citalopram 20 mg tablet 20 mg PO DAILY Qty: 90 1RF zolpidem [Ambien] 10 mg tablet 10 mg PO HS PRN (Reason: sleep) Qty: 30 0RF cyclobenzaprine 10 mg tablet 10 mg PO BID PRN (Reason: muscle spasm) Qty: 60 2RF phentermine 15 mg capsule 15 mg PO DAILY Qty: 28 0RF Hold Instructions: Has not started yet per pt Patient Comments: not started Rx Instructions: must administer 2 hours after breakfast aspirin [Adult Aspirin Regimen] 81 mg tablet,delayed release (DR/EC) 81 mg PO DAILY Discontinued ibuprofen 800 mg tablet 800 mg PO TID Qty: 270 4RF Discharge Instructions Additional Instructions: Surgery: Right shoulder arthroscopy with extensive debridement (including removal of loose bodies), labral repair/stabilization, biceps tenodesis, subacromial decompression, rotator cuff repair, and Remplissage Activity: For 6 weeks, you should keep your arm at your side in a neutral position at all times except for physical therapy. Do not try to lift or raise your arm using your own muscles. You should use the sling whenever you are out of the house. You may have to adjust the abduction pillow or remove it for comfort. At home it is best to remove the sling and rest the arm on a pillow at your side or support the operative side with your other hand. You may allow the arm to dangle at your side. A physical therapy prescription will be sent electronically to begin in about 3 weeks. CONSERVATIVE protocol. Labral repair/stabilization postoperative protocol: Weeks 0-3: 0 degrees external rotation Weeks 3-6: Maximum 30 degrees external rotation and 90 degrees forward elevation Weeks 6-8: Maximum 45 degrees external rotation and 120 degrees forward elevation Weeks 8+: Advance to full range of motion Weeks 10-12+: Start light rotator cuff strengthening and dynamic scapular stabilization Prescriptions: Naproxen 250 mg take 1-2 every 12 hours with a meal as needed for moderate pain Tramadol 50 mg take 1 every 8 hours as needed for severe pain You may use bwsg-glm-yiydqwn Tylenol (acetaminophen) as needed for mild pain. These pain medications may be taken all at once or in different combinations as needed. Also, recommend Colace (docusate) as a stool softener as surgery and pain medicine cause constipation. You may try nrqj-ugx-estpzjv diphenhydramine (Benadryl) 25-50 mg nightly as a sleep aid Dressings: Remove shoulder bandage after 3 days. Leave the sticky Steri-Strips in place until they fall off or remove them after you shower. Cover the incisions with Band-Aids or leave them open to air. You may shower after 5 days. Follow-up: 10-[address] Michael You may take off the leg compression stockings this evening at home. You may also leave them on a few days longer if you have a history of leg swelling or edema. Let us know right away if you develop any redness, drainage, fevers, chest pain, or trouble breathing. Do not drink alcohol or drive for at least 24 hours after anesthesia. Please call the office during business hours with any questions or concerns. Discharge Orders Discharge Orders: Discharge Order (Routine); Ordered 05/16/23 Ordered By: Celso Michael DS: Diagnosis Discharge Diagnosis (1) Tear of right glenoid labrum: Status: Acute (2) Hill Sachs deformity, right: Status: Acute (3) Traumatic tear of right rotator cuff: Status: Acute (4) Instability of right shoulder joint: Status: Acute (5) Loose body in right shoulder: Status: Acute
--- NOTE | 2023-05-16 10:48 | ANES.PREOP_ITS ---
General Info Date of Service Date Performed: 05/16/23 Height: 5 ft 2 in Weight: 90.9 kg Body Mass Index (BMI): 36.6 Surgical Procedure: Operation Date: 05/16/23 10:40 Proposed Procedure Side Surgeon p Shoulder Rotator Cuff Arthroscopic w/Extensive Debridement, Labral Repair/Stabilization, Possible Biceps Tenodesis,Subacromial Decompression, Remplissage Right Celso Michael MD Pre-Op Diagnosis Post-Op Diagnosis (1) Fracture dislocation of right shoulder joint: (2) Hill Sachs deformity, right: (3) Instability of right shoulder joint: (4) Loose body in right shoulder: (5) Traumatic tear of right rotator cuff: (6) Tear of right glenoid labrum: Meds Allergies and Home Medications Allergies Allergy/AdvReac Type Severity Reaction Status Date / Time codeine Allergy Intermediate Itching Verified 05/16/23 09:20 erythromycin base Allergy Unknown Nausea Verified 05/16/23 09:20 Iodinated Contrast Media Allergy Unknown Swelling/Ed Verified 05/16/23 09:20 [Iodinated Contrast- Oral [place] and IV Dye] nitrofurantoin Allergy Unknown Nausea Verified 05/16/23 09:20 oxycodone Allergy Unknown ITCHING Verified 05/16/23 09:20 Tetracyclines AdvReac Unknown N/V/D Verified 05/16/23 09:20 methylprednisolone AdvReac Nausea Verified 05/16/23 09:20 Home Medication Medication Instructions Recorded glucosamine sulfate 1,000 mg 1,500 mg PO DAILY 11/20/18 capsule magnesium oxide 500 mg capsule 500 mg PO DAILY 11/20/18 omega-3 fatty acids 1,000 mg 1,000 mg PO DAILY 11/20/18 capsule fluticasone propionate 110 2 puff inhalation BID #3 ea 01/16/19 mcg/actuation HFA aerosol inhaler (Flovent HFA) triamcinolone acetonide 0.1 % 1 applic topical BID #30 grams 01/16/19 topical cream zdixntez-cufnyywoj-meanrqszl 3.5 4 drp otic (ear) Q8H #10 mL 12/08/20 mg-10,000 unit/mL-1 % ear drops,susp fluticasone propionate 50 2 spray NS BID #3 grams 07/21/21 mcg/actuation nasal spray,suspension betamethasone valerate 0.1 % lotion 1 applic topical PRN #60 mL 01/26/22 blood sugar diagnostic #100 strips 06/14/22 ketorolac 0.5 % eye drops 1 drp ophthalmic (eye) QID 90 days 07/13/22 #10 mL lisinopril 10 mg tablet 10 mg PO DAILY #90 tab-caps 09/21/22 omeprazole 40 mg capsule,delayed 40 mg PO DAILY #90 tab-caps 09/21/22 release lancets 33 gauge #100 ea 02/10/23 albuterol sulfate 90 mcg/actuation 2 puff inhalation Q6H PRN #3 ea 02/17/23 aerosol inhaler (Proventil HFA) atorvastatin 40 mg tablet 40 mg PO QPM #90 tabs 02/17/23 citalopram 20 mg tablet 20 mg PO DAILY #90 tabs 03/07/23 zolpidem 10 mg tablet (Ambien) 10 mg PO HS PRN sleep #30 tab-caps 04/25/23 cyclobenzaprine 10 mg tablet 10 mg PO BID PRN muscle spasm #60 05/02/23 tabs dulaglutide 4.5 mg/0.5 mL 4.5 mg (0.5 mL) subcut QWEEK #2 mL 05/05/23 subcutaneous pen injector phentermine 15 mg capsule 15 mg PO DAILY #28 caps 05/10/23 aspirin 81 mg tablet,delayed 81 mg PO DAILY 05/12/23 release (Adult Aspirin Regimen) naproxen 250 mg tablet 250 - 500 mg (1 - 2 x 250 mg) PO 05/16/23 BID PRN #40 tabs tramadol 50 mg tablet 50 mg PO Q8H PRN severe pain #9 05/16/23 tabs Current Visit Medications: Current Medications Generic Name Dose Route Start Last Admin Trade Name Freq PRN Reason Stop Dose Admin Acetaminophen 1,000 mg 05/16/23 10:15 Acetaminophen 500 Mg Tab PO 06/15/23 10:14 Q6H PRN PRN Droperidol 0.625 mg 05/16/23 07:15 Droperidol 5 Mg/2 Ml Vial IVP 06/15/23 07:14 DIRECTED PRN Nausea Ephedrine Sulfate 0 mg 05/16/23 07:15 Ephedrine 25 Mg/5 Ml Syringe IVP 06/15/23 07:14 DIRECTED PRN Fentanyl 0 mcg 05/16/23 07:15 Fentanyl 100 Mcg/2 Ml Vial IVP 06/15/23 07:14 DIRECTED PRN Hydromorphone HCl 0 mg 05/16/23 07:15 Hydromorphone 2 Mg/Ml Syr IVP 06/15/23 07:14 DIRECTED PRN Ringer's Solution 1,000 mls @ 30 mls/hr 05/16/23 06:00 IV 05/16/23 23:59 INFUSION ADRIENNE Cefazolin Sodium/Dextrose 2 gm in 50 mls @ 100 mls/hr 05/16/23 06:00 Ancef Duplex IVPB 05/16/23 23:59 PREOP ADRIENNE Tranexamic Acid/Sodium Chloride 1,000 mg in 100 mls @ 600 mls/hr 05/16/23 06:00 IVPB 05/16/23 23:59 PREOP ADRIENNE IV Miscellaneous Supplies 1 each 05/16/23 06:00 Iv Access IV 05/16/23 23:59 DIRECTED ADRIENNE Naloxone HCl 0 mg 05/16/23 07:15 Naloxone 0.4 Mg/Ml Vial IVP 06/15/23 07:14 PRN PRN Sodium Chloride 0 ml 05/16/23 06:00 Normal Saline Flush 10 Ml Syr IV 05/16/23 23:59 PRN PRN Sodium Chloride 0 ml 05/16/23 06:00 Normal Saline 10 Ml Vial IJ 05/16/23 23:59 DIRECTED PRN Sterile Water 0 ml 05/16/23 06:00 Water,Injection,Sterile 10 Ml Vial IJ 05/16/23 23:59 DIRECTED PRN Tramadol HCl 50 mg 05/16/23 10:15 Tramadol 50 Mg Tab PO 06/15/23 10:14 Q6H PRN PRN PFSH Active Problems Active Problems: Problem Status Onset Code Tear of right glenoid labrum S43.431A Traumatic tear of right rotator cuff S46.011A Hill Sachs deformity, right M21.821 Loose body in right shoulder M24.011 Instability of right shoulder joint ~04/01/23 M25.311 Anxiety and depression F41.9, F32.A Chronic pain of right knee M25.561, G89.29 Iron deficiency anemia D50.9 Dyshidrotic eczema L30.1 Primary fibromyalgia syndrome 11/16/12 M79.7 Other seasonal allergic rhinitis 12/06/14 J30.2 Osteoarthritis of thumb 11/22/13 M18.10 Obesity E66.9 Hyperlipidemia E78.5 Gastroesophageal reflux disease K21.9 Essential hypertension 01/04/17 I10 Diabetes mellitus E11.9 Medical History Medical History Fracture dislocation of right shoulder joint (04/04/23) Closed dislocation of right glenohumeral joint (04/01/23) Smoker quit 2006 >30 year Pack years Surgical History Surgical History History of arthroscopy of knee History of unilateral oophorectomy Status post cholecystectomy Status post total knee replacement Replacement of total knee joint (~1994) 1994 RIGHT; 2004 RIGHT Oophrectomy, Right Oophrectomy, Left Abdominal hysterectomy (~1988) Cholecystectomy Arthroplasty of knee (~2003) Tobacco Smoking/Tobacco Use Status: Former Tobacco Use Passive smoking exposure: Yes Second hand exposure: Yes Alcohol Alcohol Intake: current Alcohol intake frequency: holidays/special occasions only Alcohol type: wine Substance Use Substance use: Never Substance use type: does not use Vital Signs and Lab Results Vital Signs Most Recent Vital Signs in EMR: Most Recent Vital Signs Temp Pulse Resp BP Pulse Ox 36.4 C L 73 18 150/81 H 97 05/16/23 09:26 05/16/23 09:26 05/16/23 09:26 05/16/23 09:26 05/16/23 09:26 Point of Care Results Point of Care Results: Finger Stick Blood Glucose 148 05/16/23 09:49 Lab Results Blood Type / Crossmatch: 2 No Data to Display Complete Blood Count: No Data to Display Complete Metabolic Panel: No Data to Display Liver Function Panel: No Data to Display Coagulation Panel: No Data to Display Cardiac Panel: No Data to Display Arterial Blood Gas: No Data to Display Venous Blood Gas: No Data to Display Pancreas Panel: No Data to Display Thyroid Panel: No Data to Display Infectious Disease: No Data to Display Blood Cultures: No Data to Display Toxicology Panel: No Data to Display Anesthesia Assessment and Plan Anesthesia History Personal History: No History of Anesthesia Complications Family History: No Family History of Anesthesia Complications Exercise Tolerance Exercise Tolerance: Metabolic Equivalents>4 Pertinent Negatives Pertinent Negatives: No Symptoms of GERD Cardiac & Pulmonary Exam Cardiac Exam: Normal S1/S2 Heart Sounds Pulmonary Exam: Clear Bilateral Breath Sounds Implantable Cardiac Device Does patient have a Pacemaker or an ICD?: No Airway Exam Known Difficult Airway: No Mallampati Class: 2 Mouth Opening: Normal (> 3cm) Thyromental Distance: Greater than 3 cm Neck Range of Motion: Full ROM Neck Circumference: Thick Teeth Condition: Normal Dentition ASA Classification ASA Score: ASA 3 Emergency Case?: No NPO Status NPO Status: NPO Clears >2 hours, Solids >8 hours Anesthesia Plan Resuscitation Status: Full Code Anesthesia Technique: General Anesthesia Airway Planned: Endotracheal Tube Pain Management: Surgeon and patient request nerve block Monitors Used: Standard Monitors
[2023-05-16] MEDS: Lactated Ringers 1,000 ML 30 ML IV (10:49)
[2023-05-16] MEDS: ceFAZolin 2 GM/50 ML BAG IVPB (11:00)
[2023-05-16] MEDS: TRANEXAMIC ACID/SOD. CHL. 1,000 MG/100 ML BAG 600 MG IVPB (11:20)
--- NOTE | 2023-05-16 11:33 | W.ANESNERVE ---
Nerve Block Single Injection Procedure Date and Time Date Performed: 05/16/23 Procedure Start: 09:40 Location Where Procedure Performed Procedure Location: Day Surgery Unit Reason Performed: Postoperative Analgesia Requesting Provider: Celso Michael Timeout Performed Timeout Performed: Yes Monitoring Used ECG, Blood Pressure, SpO2 and See EMR for corresponding vital signs Sterility Sterility: Hand Hygiene, Surgical Cap, Surgical Mask, Sterile Gloves, Eye Protection and Chlorhexidine Sedation Given During Procedure Sedation Given (Indicate Dose Given): Versed IV Dose:: 2mg IVP Patient Mental Status Patient Mental Status: Sedate with meaningful communication Nerve Block 1st Nerve Block: Laterality: Right Block Type: Interscalene Ultrasound Image Saved?: Yes Needle / Catheter Used: 80mm SonoPlex II Local Anesthetic Bolus (Indicate Dose Given): Lidocaine used for local infiltration of skin, Bupivacaine 0.5% Dose:: 0.5%/10cc (50mg) and Exparel Dose:: 1.33%/10cc (133mg) Additives (Indicate Dose Given): Epinephrine to make 1:200,000 (5mcg/ml) Dose:: 100mcg/20cc (1:200,000) and Decadron Dose:: 10mg PF Ultrasound: Sterile probe cover and gel used Nerve Stimulator: Not Used Paresthesia: None Procedure Tolerated: No Complications and Patient tolerated well Procedure Outcome: Successful Performed By: Ash Diego
[2023-05-16] MEDS: EPINEPHrine 10 MG/10 ML ML (14:00)
--- NOTE | 2023-05-16 15:36 | W.ANESPOSTOP ---
Postoperative Evaluation Date, Time and Location Date Performed: 05/16/23 Time Performed: 15:36 Patient Location: Day Surgery Unit Vital Signs Most Recent Imported Vital Signs: Most Recent Vital Signs Temp Pulse Resp BP Pulse Ox 36.4 C L 92 H 16 153/97 H 92 05/16/23 15:22 05/16/23 15:22 05/16/23 15:22 05/16/23 15:22 05/16/23 15:22 Pain Score Most Recent Pain Score: Most Recent Pain Score Pain Level 0 05/16/23 15:22 Assessment Mental Status: Awake (Alert & Oriented to Patient Baseline) Airway and Respiratory Function: Patent airway with normal (patient baseline) respiratory exam Cardiovascular Function: Hemodynamically Stable Hydration Status: Adequately Hydrated Nausea & Vomiting: No Nausea or Vomiting Pain: Pt. Denies Any Pain Peripheral Nerve Block: Regional nerve block not resolved at time of post operative discharge
== END 2023-05-16 16:36 | disposition home or self-care (01) ==
PROVIDERS: PCP Nurse Practitioner Family; Visit Provider Student in an Organized Health Care Education/Training Program
PROC: (CPT 29827; principal; 2023-05-16 10:30)
DX: S43.431A Superior glenoid labrum lesion of right shoulder, initial encounter (principal); I10 Essential (primary) hypertension; E11.9 Type 2 diabetes mellitus without complications; M21.821 Other specified acquired deformities of right upper arm; S46.011A Strain of muscle(s) and tendon(s) of the rotator cuff of right shoulder, initial encounter; M25.311 Other instability, right shoulder; M24.011 Loose body in right shoulder; X58.XXXA Exposure to other specified factors, initial encounter
CPT/HCPCS: 29806; 29827; 29828; 29826; 76942; C9290; J0131; J0171; J0665; J0690; J1885; J2001; J2250; J2371; J2704

== ENCOUNTER 2023-09-20 15:26 | Outpatient (CLI) | payer OTHER, SELFPAY ==
[2023-09-20 19:17] LABS: Hemoglobin A1C 8.4 % (<5.7)
== END 2023-09-20 15:27 | disposition home or self-care (01) ==
LOC: LBO 15:27
PROVIDERS: PCP Nurse Practitioner Family; Visit Provider Nurse Practitioner Family
DX: E11.9 Type 2 diabetes mellitus without complications (principal)
CPT/HCPCS: 36415; 83036

== ENCOUNTER 2023-09-20 21:18 | Outpatient (REF) | payer OTHER, SELFPAY | END 2023-09-20 21:19 | disposition home or self-care (01) | LOC: LBN 21:18 | PROVIDERS: PCP Nurse Practitioner Family; Visit Provider Nurse Practitioner Family | DX: T14.8XXA Other injury of unspecified body region, initial encounter (principal); E11.9 Type 2 diabetes mellitus without complications; S46.011A Strain of muscle(s) and tendon(s) of the rotator cuff of right shoulder, initial encounter; M21.821 Other specified acquired deformities of right upper arm | CPT/HCPCS: 87077; 87070; 87186; 87205 ==

== ENCOUNTER 2024-03-16 00:06 | Outpatient (CLI) | payer OTHER, SELFPAY ==
--- NOTE | 2024-03-16 07:30 | DI.MAMMO_ITS ---
Exam(s) MAMMO SCREENING EXAM: MAMMO SCREENING CLINICAL HISTORY: screening,Z12.39 TECHNIQUE: Mammograms were interpreted according to the usual protocol including computer analysis w basno CAD system, tomosynthesis and C-view imaging. COMPARISON: 2014 through 2023 FINDINGS: The breasts are composed of scattered fibroglandular densities, Breast Density category B. No suspicious masses or suspicious microcalcifications are seen. No skin thickening or abnormal axillary lymph nodes are seen. There has been no significant change from prior exams. IMPRESSION: BI-RADS Category 1, Negative mammogram Yearly screening mammography is recommended. Breast Density - Category B, scattered fibroglandular densities. A negative radiographic report should not delay biopsy if a dominant or clinically suspicious mass is present. Up to ten percent of cancers are not identified on mammography. A negative report may reinforce clinical impression. Adenosis and dense breasts may obscure an underlying neoplasm. False positive reports average 6 to 10%. Patient will receive a letter notifying them of these results.
== END 2024-03-16 00:26 ==
LOC: DI 00:06
PROVIDERS: PCP Nurse Practitioner Family; Visit Provider Nurse Practitioner Family
DX: Z12.31 Encounter for screening mammogram for malignant neoplasm of breast (principal); R92.323 Mammographic fibroglandular density, bilateral breasts
CPT/HCPCS: 77063; 77067

== ENCOUNTER 2024-03-16 00:39 | Outpatient (CLI) | payer OTHER, SELFPAY ==
[2024-03-16 15:43] LABS: HCT 38.2 % (36.0-46.0); HGB 12.2 g/dL (11.2-15.7); MCH 29.8 pg (27.0-33.0); MCHC 31.9 % (32.0-36.0); MCV 93 fL (80-95); MPV 9.4 fL (8.0-11.0); Platelet Count 250 10^3/uL (130-400); RDW 12.6 % (11.7-14.6); RDW-SD 42.9 fL; WBC 10.26 10^3/uL (4.4-10.8)
[2024-03-16 16:29] LABS: ALT 30 U/L (14-59); AST 27 U/L (15-37); Albumin 3.9 g/dL (3.4-5.0); Alkaline Phosphatase 96 U/L (46-116); BUN 10 mg/dL (7-18); Bilirubin, Total 0.29 mg/dL (0.2-1.0); Calcium 8.9 mg/dL (8.5-10.1); Calculated LDL 74 mg/dL (<100); Chloride 104 mmol/L (98-107); Cholesterol 192 mg/dL (<200); Estimated GFR 62.91 (mL/min/1.73m2); Glucose 154 mg/dL (74-106); HDL Cholesterol 43 mg/dL (40-60); Potassium 3.5 mmol/L (3.5-5.1); Sodium 141 mmol/L (136-145); Total Protein 7.6 g/dL (6.4-8.2); Triglyceride 379 mg/dL (<150)
== END 2024-03-16 00:40 | disposition home or self-care (01) ==
PROVIDERS: PCP Nurse Practitioner Family; Visit Provider Nurse Practitioner Family
DX: Z00.00 Encounter for general adult medical examination without abnormal findings (principal); F41.9 Anxiety disorder, unspecified; F32.A Depression, unspecified; I10 Essential (primary) hypertension; E78.5 Hyperlipidemia, unspecified; E11.9 Type 2 diabetes mellitus without complications; E66.9 Obesity, unspecified; K21.9 Gastro-esophageal reflux disease without esophagitis; D50.8 Other iron deficiency anemias
CPT/HCPCS: 36415; 80053; 80061; 85027

== ENCOUNTER 2024-08-23 08:47 | Outpatient (CLI) | payer MEDICARE, SELFPAY ==
[2024-08-23 09:12] LABS: Abs Immature Grans 0.04 10^3/uL (0.0-0.06); HCT 36.7 % (36.0-46.0); HGB 12.0 g/dL (11.2-15.7); Immature Grans % 0.4 %; MCH 30.7 pg (27.0-33.0); MCHC 32.7 % (32.0-36.0); MCV 94 fL (80-95); MPV 9.7 fL (8.0-11.0); Platelet Count 252 10^3/uL (130-400); RBC 3.91 10^6/uL (3.93-5.22); RDW 12.3 % (11.7-14.6); RDW-SD 42.7 fL; WBC 9.83 10^3/uL (4.4-10.8)
[2024-08-23 09:20] LABS: INR 1.0 (0.9-1.1); PTT Activated 24.6 sec (20.6-30.2); Prothrombin Time 9.8 sec (9.1-11.1)
== END 2024-08-23 08:48 | disposition home or self-care (01) ==
LOC: LBO 08:47
PROVIDERS: PCP Nurse Practitioner Family; Visit Provider Family Medicine
DX: D69.2 Other nonthrombocytopenic purpura (principal)
CPT/HCPCS: 36415; 85025; 85610; 85730